=== PATIENT | female | born 1990 | race Caucasian/White ===

== ENCOUNTER → 2017-12-06 16:10 | Outpatient (CLI) | payer BC, SELFPAY ==
[2017-12-06 18:58] LABS: Chlamydia Trachomatis by PCR Negative (Negative); Neisserai gonorrhoeae by PCR Negative (Negative); Probe Check PASS; Sample Adequacy Control PASS; Specimen Processing Control PASS
[2017-12-09 08:30] LABS: HPV Reflexed? NOT INDICATED
== END ==
PROVIDERS: Family Provider Family Medicine; PCP Family Medicine; Visit Provider Obstetrics & Gynecology
DX: Z34.00 Encounter for supervision of normal first pregnancy, unspecified trimester (principal); Z12.4 Encounter for screening for malignant neoplasm of cervix
CPT/HCPCS: 87086; 87491; 87591; 88175; G0145

== ENCOUNTER → 2018-01-14 08:49 | Outpatient (CLI) | payer BC, SELFPAY ==
[2018-01-14 09:11] LABS: Absolute Lymphocyte Count 1.05 X10^3/ul (0.83-4.51); Absolute Neutrophil Count 6.4 X10^3/uL (2.0-7.7); Basophil# 0.01 X10^3/uL; Basophil% 0.1 % (0-1); Eosinophil# 0.04 X10^3/uL; Eosinophils% 0.5 % (0-5); Hemoglobin 13.1 g/dl (12.0-15.0); Lymphocyte # 1.05 X10^3/ul (4.0); Lymphocyte % 13.3 % (19-41); Mean Corp Hgb Conc 33.6 g/gl (32-36); Mean Corpuscular Hgb 29.9 pg (27.0-32.0); Mean Platelet Vol. 9.4 fl (6.2-12.0); Monocyte# 0.37 X10^3/uL; Monocyte% 4.7 % (0-10); Neutrophil # 6.39 X10^3/uL (2.7-7.7); Neutrophil % 81.1 % (47-70); Platelet Count 235 K/mm3 (150-450); RBC Distribution Width SD 42.3 fl (35.1-43.9); Red Blood Count 4.38 M/mm3 (4.2-5.4); White Blood Count 7.9 K/mm3 (4.4-11.0)
[2018-01-14 09:16] LABS: POSITIVE COUNT NO; POSITIVE DIFFERENTIAL NO; POSITIVE MORPHOLOGY NO
[2018-01-14 10:47] LABS: HIV - WCH Non-Reactive (Nonreactive); Rubella IgG 71.8 IU/mL
[2018-01-15 08:30] LABS: HEPATITIS B SURFACE AG Negative (Negative)
[2018-01-21 04:13] LABS: Rapid Plasmin Reagin (RPR) NONREACTIVE (NONREACTIVE)
== END ==
PROVIDERS: Family Provider Family Medicine; PCP Family Medicine; Referring Provider Obstetrics & Gynecology; Visit Provider Obstetrics & Gynecology
DX: Z34.90 Encounter for supervision of normal pregnancy, unspecified, unspecified trimester (principal)
CPT/HCPCS: 36415; 85025; 86592; 86703; 86762; 86850; 86900; 87086; 87340; 87491; 87591

== ENCOUNTER → 2018-04-01 15:36 | Outpatient (CLI) | payer BC, OTHER, SELFPAY ==
[2018-04-01 14:49] VITALS: BMI 22.1
[2018-04-01 16:15] LABS: Absolute Lymphocyte Count 1.53 X10^3/ul (0.83-4.51); Absolute Neutrophil Count 7.6 X10^3/uL (2.0-7.7); Basophil# 0.01 X10^3/uL; Basophil% 0.1 % (0-1); Eosinophil# 0.05 X10^3/uL; Eosinophils% 0.5 % (0-5); Hematocrit 36.9 % (37-47); Hemoglobin 12.2 g/dl (12.0-15.0); Lymphocyte # 1.53 X10^3/ul (4.0); Lymphocyte % 15.5 % (19-41); Mean Corp Hgb Conc 33.1 g/gl (32-36); Mean Corpuscular Hgb 29.8 pg (27.0-32.0); Mean Corpuscular Volume 90.2 fL (81-99); Mean Platelet Vol. 9.6 fl (6.2-12.0); Monocyte# 0.61 X10^3/uL; Monocyte% 6.2 % (0-10); Neutrophil # 7.64 X10^3/uL (2.7-7.7); Neutrophil % 77.6 % (47-70); Platelet Count 241 K/mm3 (150-450); RBC Distribution Width CV 12.8 % (11.6-14.6); RBC Distribution Width SD 41.7 fl (35.1-43.9); Red Blood Count 4.09 M/mm3 (4.2-5.4); White Blood Count 9.9 K/mm3 (4.4-11.0)
[2018-04-01 16:23] LABS: POSITIVE COUNT NO; POSITIVE DIFFERENTIAL NO; POSITIVE MORPHOLOGY NO
[2018-04-01 16:28] LABS: Glucose Challenge Gest 1H 50g 74 mg/dL (70-140)
== END ==
PROVIDERS: Family Provider Family Medicine; PCP Family Medicine; Referring Provider Obstetrics & Gynecology; Visit Provider Obstetrics & Gynecology
DX: Z34.90 Encounter for supervision of normal pregnancy, unspecified, unspecified trimester (principal)
CPT/HCPCS: 36415; 82950; 85025

== ENCOUNTER → 2018-06-02 18:53 | Outpatient (CLI) | payer OTHER, SELFPAY ==
[2018-06-02 14:41] VITALS: BMI 24.7
== END ==
PROVIDERS: Family Provider Family Medicine; PCP Family Medicine; Referring Provider Obstetrics & Gynecology; Visit Provider Obstetrics & Gynecology
DX: Z34.90 Encounter for supervision of normal pregnancy, unspecified, unspecified trimester (principal)
CPT/HCPCS: 87081

== ENCOUNTER 2018-07-02 11:53 | Inpatient (IN) | payer OTHER, SELFPAY ==
[2018-06-29 08:09] VITALS: BMI 24.7
[2018-07-02 12:25] VITALS: BMI 25.0
[2018-07-02] MEDS: Lactated Ringers 1,000 ML 50 ML IV ×2 (13:30→17:42)
[2018-07-02 13:48] LABS: Absolute Lymphocyte Count 1.14 X10^3/ul (0.83-4.51); Absolute Neutrophil Count 6.9 X10^3/uL (2.0-7.7); Basophil# 0.02 X10^3/uL; Basophil% 0.2 % (0-1); Eosinophil# 0.01 X10^3/uL; Eosinophils% 0.1 % (0-5); Hematocrit 36.7 % (37-47); Hemoglobin 12.3 g/dl (12.0-15.0); Lymphocyte # 1.14 X10^3/ul (4.0); Lymphocyte % 13.4 % (19-41); Mean Corp Hgb Conc 33.5 g/gl (32-36); Mean Corpuscular Hgb 28.7 pg (27.0-32.0); Mean Corpuscular Volume 85.7 fL (81-99); Mean Platelet Vol. 10.7 fl (6.2-12.0); Monocyte# 0.48 X10^3/uL; Monocyte% 5.6 % (0-10); Neutrophil # 6.85 X10^3/uL (2.7-7.7); Neutrophil % 80.6 % (47-70); POSITIVE COUNT NO; POSITIVE DIFFERENTIAL NO; POSITIVE MORPHOLOGY NO; Platelet Count 217 K/mm3 (150-450); RBC Distribution Width CV 13.6 % (11.6-14.6); RBC Distribution Width SD 41.8 fl (35.1-43.9); Red Blood Count 4.28 M/mm3 (4.2-5.4); White Blood Count 8.5 K/mm3 (4.4-11.0)
--- NOTE | 2018-07-02 14:03 | HP.PCM_ITS ---
- Problem List (1) Post-dates Status: Acute (2) Status: Acute Qualifiers: Comment: genetic, carrier, and NTD screening declined. Anatomy scan normal (3) Supervision of normal Status: Acute Qualifiers: Comment: PRR BEATA 06/25/18 surprise ENA Sy [facility] History and Physical Date of Admission: 07/02/18 Intake Vital Signs 06/29/18 Body Mass Index (BMI) 24.7 06/29/18 Height 5 ft 4 in 06/29/18 Weight: 146 lb 6 oz 06/29/18 Body Mass Index (BMI) 25.1 06/29/18 Blood Pressure 124/78 H 06/24/18 Body Mass Index (BMI) 24.7 Intake Visit Reasons: est ob ok per sm Winding Inspector And Tester Required: No Is patient in pain?: No Allergies latex Adverse Reaction (Severe, Verified 06/29/18 08:09) lips swell Medications vitamin,calcium,iwlchmrb-ifzq-inipd acid tablet 1 tab PO DAILY 12/06/17 [History Confirmed 06/29/18] Last Menstral Period: 12/06/17 Zika: Zika virus screening: Negative : No PFSH PFSH Medical History Scoliosis (Acute) Social History number of children: 1 current occupation: Stay at home mom Smoking Status: Never smoker alcohol intake: never substance use type: does not use caffeine: Yes (3 times a week) seatbelt use: always do you feel safe at home: Yes additional social history: [facility] [employer] Pregancy History 2 Elective abortions Hx Para 1 Spontaneous abortions Hx # Term Pregnancies 1 Ectopic pregnancies Hx # Pregnancies Multiple births # of living children 1 Past Pregnancies Del. Date Name GA/Weeks Outcome Route Bth Weight Infant Gen Labor Lgth Anesthesia Del Locatn Provider FOB 08/14/16 Sy 40 live - full term 7 lbs 15 oz. Male 13 hours epidural [facility] HPI est ob ok per sm: Details: DELMY FLORES is a 28 year old who presents for routine OB visit. OB Visit BEATA Calculator Estimated Delivery Date 06/25/18 Based on Ultrasound Date 12/06/17 Current WG 40w 4d Number 1 Expected Delivery Route/Plan Specific Issue/Plans flu vaccine: given tdap vaccine: given rhogam: [na LARC form signed: declines labor support person: Hever pain management: epidural cut cord/dad catch: maybe : yes PP control planned: possible paragard discussed possible routes of delivery and associated risks: [] special requests: [] Initial Weight: 115 lb Date EGA Weight BP Urine Prot Glucose FHR FuHt Pres Mov CTX Dilation Effaced St Visit Note 01/14/18 16w 6d 117 lb 4 oz (+2 lb 4 oz) 150 no vb cramping 01/31/18 19w 2d 118 lb 8 oz (+3 lb 8 oz) 110/62 Negative Negative 149 Active absent No VB, LOF. Doing well 02/28/18 23w 2d 129 lb (+14 lb) 110/64 Negative Negative 140 Active absent no vb lof good fm no regular ctx. has fu anatomy us 04/01/18 27w 6d 132 lb 6 oz (+17 lb 6 oz) 124/70 140 28 Active absent no vb lof good fm no regular ctx cbc gct 04/26/18 31w 3d 139 lb 4 oz (+24 lb 4 oz) 132/88 Negative Negative 151 31 Active absent Doing well. No VB, LOF 05/11/18 33w 4d 141 lb (+26 lb) 126/80 Negative Negative 140 34 Active absent no vb lof good fm no regular ctx 05/24/18 35w 3d 142 lb 4 oz (+27 lb 4 oz) 128/78 Trace 100 g/dL 151 36 Unstable Active absent No VB, LOF. Had pancakes, syrup and cookie prior to appt. 06/02/18 36w 5d 144 lb (+29 lb) 102/60 Negative Negative 145 37 Cephalic Active absent no vb lof good fm no regular ctx 06/08/18 37w 4d 145 lb 4 oz (+30 lb 4 oz) 128/86 Trace Negative 140 37 Cephalic Active absent no vb lof good fm no regular ctx 06/17/18 38w 6d 147 lb (+32 lb) 130/80 1+ A* 200 g/dL A* 145 39 Cephalic Active absent no vb lof good fm no regular ctx 06/24/18 39w 6d 146 lb (+31 lb) 132/82 Negative Negative 140 40 Cephalic Active absent no vb lof good fm no regular ctx plan IOL 41 weeks 06/29/18 40w 4d 146 lb 6 oz (+31 lb 6 oz) 124/78 Negative Negative 140 41 Cephalic Active absent 2.5 7: 0 -1 membranes swept, plan IOL wednesday. no vb lof good fm n oregular ctx Visit Notes Visit Date: 06/29/18 ??membranes swept, plan IOL wednesday. no vb lof good fm n oregular ctx ??Mendy Harris MD on 06/29/18 Visit Date: 06/24/18 ??no vb lof good fm no regular ctx plan IOL 41 weeks ??Mendy Harris MD on 06/24/18 Visit Date: 06/17/18 ??no vb lof good fm no regular ctx ??Mendy Harris MD on 06/17/18 Visit Date: 06/08/18 ??no vb lof good fm no regular ctx ??Mendy Harris MD on 06/08/18 Visit Date: 06/02/18 ??no vb lof good fm no regular ctx ??Mendy Harris MD on 06/05/18 Visit Date: 05/24/18 ??No VB, LOF. Had pancakes, syrup and cookie prior to appt. ??FRED Hu on 05/24/18 Visit Date: 05/11/18 ??no vb lof good fm no regular ctx ??Mendy Harris MD on 05/11/18 Visit Date: 04/26/18 ??Doing well. No VB, LOF ??FRED Hu on 04/26/18 Visit Date: 04/01/18 ??no vb lof good fm no regular ctx cbc gct ??Mendy Harris MD on 04/01/18 Visit Date: 02/28/18 ??no vb lof good fm no regular ctx. has fu anatomy us ??Mendy Harris MD on 02/28/18 Visit Date: 01/31/18 ??No VB, LOF. Doing well ??FRED Hu on 01/31/18 Visit Date: 01/14/18 ??no vb cramping ??Mendy Harris MD on 01/14/18 ACOG First Trimester First Trimester: Desire for , Alcohol, Tobacco Cessation, Illicit/Recreational Drug/Substance Use, Intimate Partner Violence, Barriers to care, Unstable Housing, Communication Barriers, Environmental/Work Hazards, Anticipated Course of Care, Toxoplasmosis Precations, Use of Any medications, Sexual activity, Exercise, Dental Care, Sauna/Hot tub use, Seat Belt use, Childbirth classes/Hospital facilities, , Travel, Indications for US and Screening for Aneuploidy Second Trimester Second Trimester: Signs and Symptoms of Labor, Selecting a care provider, Reproductive Life Planning, Care Planning, Tobacco Cessation, Depression/Anxiety and Intimate Partner Violence Third Trimester Third Trimester: Pain Management Plans, Labor support person(s), Immediate Larc, Movement Monitoring and Infant Feeding Yes ; discussed Trial of Labor after Counseling or discussed Circumcision preference Diagnostics Diagnostics Labs Blood Type O POSITIVE 01/14/18 Antibody Screen NEGATIVE 01/14/18 Hct 36.9 % (37-47) L 04/01/18 Hgb 12.2 g/dl (12.0-15.0) 04/01/18 Rubella IgG Antibody 71.8 IU/mL 01/14/18 RPR NONREACTIVE (NONREACTIVE) 01/14/18 Hep Bs Antigen Negative (Negative) 01/14/18 Chlam trachomat DNA PCR Cancelled 01/14/18 N.gonorrhoeae DNA (PCR) Cancelled 01/14/18 Glucose 1 Hr 50 gm 74 mg/dL (70-140) 04/01/18 Details: HIV: Urine Culture: Sequential Screen: NIPT Screen: ROS Const Reports system reviewed and no additional complaints, except as docu Card Reports system reviewed and no additional complaints, except as docu Resp Reports system reviewed and no additional complaints, except as docu GI Reports system reviewed and no additional complaints, except as docu, Reports nausea Reports system reviewed and no additional complaints, except as docu Musc Reports system reviewed and no additional complaints, except as docu Exam Const General: cooperative, healthy appearing, comfortable, anxious HENMT Head: normal to inspection Nose: external nose normal Face and sinus: normal facial exam Neck Neck: normal visual inspection, full ROM, no lymphadenopathy Thyroid: thyroid normal Chest Chest palpation & inspection: normal inspection of the chest Resp Effort & Inspection: normal respiratory effort GI Inspection: normal to inspection Palpation: soft, other (gravid uterus) Other: infant vertex and appropriate size for gestational age Other: Cervical Exam: Extrem General: pedal edema Results [id number] Office Urine Glucose Negative Last Edit by Alessandra Murcia on 06/29/18 08:07 Office Urine Protein Negative Last Edit by Alessandra Murcia on 06/29/18 08:07 Assessment & Plan Problems 1. Encounter for supervision of other normal in third trimester Z34.83 PRR BEATA 06/25/18 surprise PC Sy Hever 2. 38 weeks gestation of Z3A.38 genetic, carrier, and NTD screening declined. Anatomy scan normal 3. Post-dates O48.0 Plan plan IOL pitocin on wednesday. membranes swept. gbs neg. plan epidural prn Orders Orders: POC Urinalysis 2 Dip (Clinic) Today Coding Level of Care Code OB Routine Diagnoses Encounter for supervision of other normal in third trimester Z34.83 ??Normal : other normal ??Trimester: third trimester 38 weeks gestation of Z3A.38 ??Weeks of gestation: 38 weeks Post-dates O48.0 UPDATE- I have seen the patient and performed any clinically relevant updates to the history and physical exam. Mendy Harris MD
[2018-07-02] MEDS: Oxytocin 30 units/NS 500 ml 30 UNITS/500 ML IV.SOLN IV (14:08)
[2018-07-02] MEDS: fentaNYL-bupivacaine (epidural) 100 ML BAG EPIDURAL (15:37)
[2018-07-02] MEDS: Oxytocin 30 units/NS 500 ml 30 UNITS/500 ML IV.SOLN 334 UNITS IV (18:48)
[2018-07-02] MEDS: Oxytocin 30 units/NS 500 ml 30 UNITS/500 ML IV.SOLN 167 UNITS IV (19:19)
[2018-07-02] MEDS: 0.9% Saline Lock 10 ML Syringe IV (20:20)
[2018-07-02] MEDS: Naproxen 250 MG Tablet 500 MG PO (21:10)
--- NOTE | 2018-07-02 21:29 | PCM.OPRPT ---
Problem List (1) Post-dates Status: Acute (2) Status: Acute Qualifiers: Comment: genetic, carrier, and NTD screening declined. Anatomy scan normal (3) Supervision of normal Status: Acute Qualifiers: Comment: PRR BEATA 06/25/18 surprise PC Sy [facility] Vaginal Delivery Maternal Presentation: Medically Indicated Induction iol 41 weeks postdates Method of Induction: Pitocin Medical Reason for Induction: Post term Amniotic Membrane Rupture Type: Artificial Amniotic Fluid Description: Clear Final BEATA: 06/25/18 Gestational age: 41 Weeks and 0 Days Date of Procedure: 07/02/18 Pre-Operative Diagnosis: iol postdates Post-Operative Diagnosis: same Surgery/ Procedure Performed: Spontaneous Vaginal Delivery Type of Anesthesia: Epidural Description of Procedure: Patient began pushing and delivered the head in the DAVID presentation. The head was delivered atraumatically and a loose nuchal cord ?1 was identified and easily reduced over the infant's head. The anterior and posterior shoulders delivered without complication followed by the rest of the infant and the was placed on the maternal abdomen. Delayed cord clamping was employed for approximately 60 seconds. Cord was clamped and cut and gentle traction was applied to the cord and the placenta delivered spontaneously immediately following it was noted to be intact with three-vessel cord. The perineum and vagina were inspected and noted to have no laceration. EBL was 100 cc. Patient and tolerated delivery well. Presentation: DAVID Placental Delivery Description: Spontaneous Placenta Disposition: [facility] Cord Vessel Description: 3 Vessels Cord Entanglement: Around neck x 1, loose Estimated Blood Loss: 100 A gender: Male Episiotomy Description: None Laceration: None Medications given after delivery: IV Pitocin Complications: None
[2018-07-03 00:55] VITALS: BP 114/62; PULSE 72; RESP 16; TEMP 36.6
[2018-07-03 05:00] VITALS: BP 119/55; PULSE 80; RESP 16; TEMP 36.4
[2018-07-03 08:00] VITALS: BP 117/78; PULSE 94; RESP 18; TEMP 36.6
--- NOTE | 2018-07-03 08:05 | PCM.PN.OB ---
Subjective: doing well no complaints pain controlled no CP SOB N V ambulating well tolerating po lochia moderate, going well - Physical Exam General: Alert, Oriented x3 Vital Signs Temp Pulse Resp BP 97.6 F L 80 16 119/55 L 07/03/18 05:00 07/03/18 05:00 07/03/18 05:00 07/03/18 05:00 Oxygen Delivery Method Room Air Weight: 145 lb 15.136 oz Body Mass Index (BMI) 25.0 Intake and Output for Last 24 Hours 07/01/18 07/02/18 07/03/18 23:59 23:59 23:59 Output Total 250 / 250 500 / 500 Balance -250 / -250 -500 / -500 Laboratory Tests Past 24 Hrs 07/02/18 07/02/18 13:30 13:30 WBC 8.5 RBC 4.28 Hgb 12.3 Hct 36.7 L MCV 85.7 MCH 28.7 MCHC 33.5 RDW 13.6 RDW Differential 41.8 Plt Count 217 MPV 10.7 Immature Gran % (Auto) 0.100 Neut % (Auto) 80.6 H Lymph % (Auto) 13.4 L [place] % (Auto) 5.6 Eos % (Auto) 0.1 Baso % (Auto) 0.2 Absolute Neuts (auto) 6.9 Absolute Lymphs (auto) 1.14 Total Counted Not Reportable Blood Type O POSITIVE Antibody Screen NEGATIVE Medical Necessity - Tobacco Use Smoking Status: Never smoker Assessment/Plan All Active Problems (Last Reviewed 06/29/18 @ 08:09 by Alessandra Murcia) Post-dates (Acute) Supervision of normal (Acute) (Acute) s/p PPD # 1 1. routine post delivery care 2. breast feeding- support given 3. rh positive 4. rubella immune
--- NOTE | 2018-07-03 08:06 | DCINST_ITS ---
Discharge Diet: No Restrictions Discharge Activity: Return to Normal Activity, May not drive while taking narcotic pain medications., May Shower May resume sexual activity in: 4-6 weeks Call your doctor if your incision/area has: Continuous Slow Oozing, Sudden Increased Bleeding, Increased Pain/ Swelling, Increased Redness, Foul Smelling Discharge Additional Instructions: If you experience any of the following, contact your healthcare provider. * Bleeding that soaks a pad every hour for 2 hours * Fever 100.4 or higher * Unrelieved incision or abdominal pain * Swelling, redness, discharge or bleeding from your incision or episiotomy site * Your incision begins to separate * Problems urinating (including inability to urinate or burning while urinating). * Visual changes * Severe headache * Flu-like symptoms * Pain or redness in one of both of your breasts * Pain, warmth, tenderness or swelling in your legs, especially the calf area * Frequent nausea and vomiting * Symptoms of depression or anxiety If you experience any of the following, call 911 or go to the nearest Emergency Room. * Chest pain * Problems breathing * Seizure activity * Partial or complete paralysis of a body part, slurred speech, weakness or drooping of the face, or a sudden inability to walk or hold your balance Allergies/Adverse Reactions: Allergies latex Adverse Reaction (Severe, Verified 06/29/18 08:09) lips swell Medications to take at Discharge vitamin,calcium,mswwvlcr-fqjf-vilkk acid tablet 1 tab PO DAILY 12/06/17 Please Follow Up With: Mendy Harris MD - [phone] When: Call to make an appointment with your doctor in 6 weeks. If you had elevated Blood pressure or 4th degree laceration you will need to be seen in 2 weeks. Primary Care Physician: Care Physician,No Primary [Primary Care Provider] - Test Results: Test results from this visit will be discussed in further detail at your follow- up appointment, if applicable.
--- NOTE | 2018-07-03 08:06 | PCM.DCVAG ---
Discharge Diet: No Restrictions Discharge Activity: Return to Normal Activity, May not drive while taking narcotic pain medications., May Shower May resume sexual activity in: 4-6 weeks Call your doctor if your incision/area has: Continuous Slow Oozing, Sudden Increased Bleeding, Increased Pain/ Swelling, Increased Redness, Foul Smelling Discharge Additional Instructions: If you experience any of the following, contact your healthcare provider. Bleeding that soaks a pad every hour for 2 hours Fever 100.4 or higher Unrelieved incision or abdominal pain Swelling, redness, discharge or bleeding from your incision or episiotomy site Your incision begins to separate Problems urinating (including inability to urinate or burning while urinating). Visual changes Severe headache Flu-like symptoms Pain or redness in one of both of your breasts Pain, warmth, tenderness or swelling in your legs, especially the calf area Frequent nausea and vomiting Symptoms of depression or anxiety If you experience any of the following, call 911 or go to the nearest Emergency Room. Chest pain Problems breathing Seizure activity Partial or complete paralysis of a body part, slurred speech, weakness or drooping of the face, or a sudden inability to walk or hold your balance Allergies/Adverse Reactions: Allergies latex Adverse Reaction (Severe, Verified 06/29/18 08:09) lips swell Medications to take at Discharge vitamin,calcium,pkbzxqhy-ivyf-judso acid tablet 1 tab PO DAILY 12/06/17 Please Follow Up With: Mendy Harris MD - [phone] When: Call to make an appointment with your doctor in 6 weeks. If you had elevated Blood pressure or 4th degree laceration you will need to be seen in 2 weeks. Primary Care Physician: Care Physician,No Primary [Primary Care Provider] - Test Results: Test results from this visit will be discussed in further detail at your follow-up appointment, if applicable.
[2018-07-03 12:15] VITALS: BP 113/75; PULSE 70; RESP 18; TEMP 36.6
[2018-07-03] MEDS: Naproxen 250 MG Tablet 500 MG PO (15:28)
[2018-07-03 16:50] VITALS: BP 119/62; PULSE 67; RESP 18; TEMP 36.7
[2018-07-03 20:30] VITALS: BP 129/80; PULSE 67; RESP 16; TEMP 36.5
[2018-07-04 02:55] VITALS: BP 103/68; PULSE 64; RESP 16; TEMP 36.6
--- NOTE | 2018-07-04 07:28 | PCM.PN.OB ---
Subjective: doing well no complaints pain controlled no CP SOB N V ambulating well tolerating po lochia moderate, going well - Physical Exam General: Alert, Oriented x3 Abdomen: Soft, Non Tender, - - FF below U. Significant diastasis recti. Vital Signs Temp Pulse Resp BP 97.9 F 64 16 103/68 07/04/18 02:55 07/04/18 02:55 07/04/18 02:55 07/04/18 02:55 Oxygen Delivery Method Room Air Weight: 145 lb 15.136 oz Body Mass Index (BMI) 25.0 Intake and Output for Last 24 Hours 07/02/18 07/03/18 07/04/18 23:59 23:59 23:59 Output Total 250 / 250 900 / 900 Balance -250 / -250 -900 / -900 Medical Necessity - Tobacco Use Smoking Status: Never smoker Assessment/Plan All Active Problems (Last Reviewed 06/29/18 @ 08:09 by Alessandra Murcia) Post-dates (Acute) Supervision of normal (Acute) (Acute) s/p PPD # 2 1. routine post delivery care 2. breast feeding- support given 3. rh positive 4. rubella immune 5. abdominal binder prn 6. home today
[2018-07-04 08:00] VITALS: BP 129/81; PULSE 84; RESP 18; TEMP 36.4
== END 2018-07-04 09:20 | disposition home or self-care (01) | DRG 807 ==
PROVIDERS: Admitting Provider Obstetrics & Gynecology; Visit Provider Obstetrics & Gynecology
DX: O48.0 Post-term pregnancy (principal); Z37.0 Single live birth; O69.81X0 Labor and delivery complicated by cord around neck, without compression, not applicable or unspecified; Z3A.41 41 weeks gestation of pregnancy
CPT/HCPCS: 59025; 59050; 85025; 86850; 86900; 99218; J7120; A4216; G0378; J3490

== ENCOUNTER 2018-07-20 11:25 | Outpatient (CLI) | payer OTHER, SELFPAY | END 2018-07-20 12:25 | disposition home or self-care (01) | LOC: WPOUT 11:30 → WP 11:30 | PROVIDERS: Referring Provider Obstetrics & Gynecology; Visit Provider Obstetrics & Gynecology | DX: Z39.1 Encounter for care and examination of lactating mother (principal) | CPT/HCPCS: 96152 ==

== ENCOUNTER → 2019-10-12 10:11 | Outpatient (CLI) | payer OTHER, SELFPAY ==
[2019-10-12 10:08] VITALS: BMI 25.0
[2019-10-12 10:33] LABS: Absolute Lymphocyte Count 1.28 X10^3/uL (0.83-4.51); Absolute Neutrophil Count 6.4 X10^3/uL (2.0-7.7); Basophil# 0.05 X10^3/uL; Basophil% 0.6 % (0-1); Eosinophil# 0.05 X10^3/uL; Eosinophils% 0.6 % (0-5); Hematocrit 40.1 % (37-47); Hemoglobin 13.3 g/dL (12.0-15.0); Lymphocyte # 1.28 X10^3/ul (4.0); Lymphocyte % 15.3 % (19-41); Mean Corp Hgb Conc 33.2 g/dL (32-36); Mean Corpuscular Hgb 30.2 pg (27.0-32.0); Mean Corpuscular Volume 90.9 fL (81-99); Mean Platelet Vol. 9.8 fl (6.2-12.0); Monocyte# 0.53 X10^3/uL; Monocyte% 6.4 % (0-10); NRBC Flagged by Analyzer 0 % (0-5); Neutrophil # 6.41 X10^3/uL (2.7-7.7); Neutrophil % 76.9 % (47-70); Platelet Count 233 K/mm3 (150-450); RBC Distribution Width CV 12.4 % (11.6-14.6); Red Blood Count 4.41 M/mm3 (4.2-5.4); White Blood Count 8.3 K/mm3 (4.4-11.0)
[2019-10-12 13:39] LABS: HIV - WCH Non-Reactive (Nonreactive); Hepatitis B Surface Antigen Non-Reactive (Nonreactive); Hepatitis C Antibody Non-Reactive (Nonreactive); Rubella IgG 50.4 IU/mL
[2019-10-12 19:18] LABS: Amphetamine Urine VISTA NEGATIVE (<1000 ng/mL); Barbiturate Urine VISTA NEGATIVE (< 200 ng/mL); Benzodiazepine Urine VISTA NEGATIVE (< 200 ng/mL); Cocaine Urine VISTA NEGATIVE (< 300 ng/mL); Ecstacy Urine VISTA NEGATIVE (< 500 ng/mL); Methadone Urine VISTA NEGATIVE (< 300 ng/mL); PCP Urine VISTA NEGATIVE (< 25 ng/mL); THC Urine VISTA NEGATIVE (< 50 ng/mL); Vista UDS pH Range 6
[2019-10-12 22:24] LABS: Chlamydia Trachomatis by PCR Negative (Negative); Neisserai gonorrhoeae by PCR Negative (Negative); Probe Check PASS; Sample Adequacy Control PASS; Specimen Processing Control PASS
[2019-10-19 02:24] LABS: Rapid Plasmin Reagin (RPR) NONREACTIVE (NONREACTIVE)
== END ==
PROVIDERS: Referring Provider Obstetrics & Gynecology; Visit Provider Obstetrics & Gynecology
DX: Z34.90 Encounter for supervision of normal pregnancy, unspecified, unspecified trimester (principal)
CPT/HCPCS: 36415; 80307; 85025; 86592; 86703; 86762; 86803; 86850; 86900; 86901; 87086; 87088; 87340; 87491; 87591

== ENCOUNTER → 2019-12-25 07:53 | Outpatient (CLI) | payer OTHER, SELFPAY ==
[2019-12-07 08:44] VITALS: BMI 25.0
--- NOTE | 2019-12-25 07:56 | US_ITS ---
STUDY: SECOND AND THIRD TRIMESTER OBSTETRICAL ULTRASOUND REASON FOR EXAM: Female, 29 years old ANATOMY LMP: 08/06/2019. TECHNIQUE: Transabdominal TECHNICAL QUALITY: Adequate. PRIOR ULTRASOUND: None. FINDINGS: There is a single intrauterine fetus. The fetus is in a cephalic presentation. There is demonstrated cardiac activity with a heart rate of 148 bpm. There is a normal amniotic fluid volume. The largest amniotic fluid pocket measures 9.7 cm x 1.9 cm. The amniotic fluid index (MARY) is within normal limits. The placenta is anterior in location and is not low lying. There are Grade 0 placental changes. The cervix measures 4.2 cm in length. The adnexal regions are not visualized. BIOMETRY: BPD: 4.4 cm: 19 weeks, 1 days HC: 16.7 cm: 19 weeks, 2 days AC: 14.8 cm: 20 weeks, 0 days FL: 3.0 cm: 19 weeks, 2 days CI: 75% FL/BPD: 69% FL/HC: FL/AC: 21% HC/AC: 1.13 age by current US: 19 weeks, 1 days. BEATA by current US: 05/19/2020. Estimated weight: 370 grams, +/- 45 grams, 17 %. Age by LMP: 20 weeks, 1 days. BEATA by LMP: 05/12/2020. ANATOMY: Gender: Female Cranium: Normal lateral ventricles. Normal choroid plexus. Normal cerebellum. Normal cisterna magna. Normal face, nose and lips. Chest: Normal 4-chamber heart. Abdomen/Pelvis: Normal diaphragm. Normal stomach. Normal abdominal wall. Normal cord insertion. Normal 3 vessel cord. Normal kidneys. Normal bladder. Spine: Normal cervical spine. Normal thoracic spine. Normal lumbar spine. Normal sacrum. Extremities: Normal bilateral upper extremities. Normal bilateral lower extremities. US/OB Anatomy Scan IMPRESSION: Single live uterine gestation with a mean gestational age of 19 weeks and 1 day. Electronically Signed: Xander Burks, at 11:18 EDT , Service support ,
== END ==
PROVIDERS: Referring Provider Nurse Practitioner Women's Health; Visit Provider Nurse Practitioner Women's Health
DX: Z3A.19 19 weeks gestation of pregnancy (principal)
CPT/HCPCS: 76805

== ENCOUNTER → 2020-02-19 09:57 | Outpatient (CLI) | payer OTHER, SELFPAY ==
[2020-01-29 10:11] VITALS: BMI 22.4
[2020-02-19 10:13] LABS: Absolute Lymphocyte Count 1.29 X10^3/uL (0.83-4.51); Basophil# 0.04 X10^3/uL; Basophil% 0.4 % (0-1); Eosinophil# 0.07 X10^3/uL; Eosinophils% 0.7 % (0-5); Hematocrit 39.4 % (37-47); Hemoglobin 12.6 g/dL (12.0-15.0); Lymphocyte # 1.29 X10^3/ul (4.0); Mean Corpuscular Hgb 30.3 pg (27.0-32.0); Mean Corpuscular Volume 94.7 fL (81-99); Mean Platelet Vol. 9.3 fl (6.2-12.0); Monocyte# 0.43 X10^3/uL; Monocyte% 4.3 % (0-10); NRBC Flagged by Analyzer 0 % (0-5); Neutrophil # 8.02 X10^3/uL (2.7-7.7); Neutrophil % 81.1 % (47-70); Platelet Count 223 K/mm3 (150-450); RBC Distribution Width CV 12.9 % (11.6-14.6); RBC Distribution Width SD 44.3 fl (35.1-43.9); Red Blood Count 4.16 M/mm3 (4.2-5.4); White Blood Count 9.9 K/mm3 (4.4-11.0)
[2020-02-19 10:20] LABS: Glucose Challenge Gest 1H 50g 88 mg/dL (70-140)
== END ==
PROVIDERS: Referring Provider Obstetrics & Gynecology; Visit Provider Obstetrics & Gynecology
DX: Z34.90 Encounter for supervision of normal pregnancy, unspecified, unspecified trimester (principal)
CPT/HCPCS: 36415; 82950; 85025

== ENCOUNTER → 2020-04-19 12:39 | Outpatient (CLI) | payer OTHER, SELFPAY ==
[2020-04-19 09:50] VITALS: BMI 24.9
== END ==
PROVIDERS: Referring Provider Obstetrics & Gynecology; Visit Provider Obstetrics & Gynecology
DX: Z34.90 Encounter for supervision of normal pregnancy, unspecified, unspecified trimester (principal)
CPT/HCPCS: 87081

== ENCOUNTER → 2020-05-10 10:19 | Outpatient (CLI) | payer OTHER, SELFPAY ==
[2020-04-03 09:10] VITALS: BMI 24.4
[2020-05-10 09:00] VITALS: BMI 25.6
== END ==
PROVIDERS: Visit Provider Nurse Practitioner Women's Health
DX: Z11.59 Encounter for screening for other viral diseases (principal)
CPT/HCPCS: 87635; C9803; U0005; U0003

== ENCOUNTER 2020-05-18 18:10 | Inpatient (IN) | payer OTHER, SELFPAY ==
[2020-05-17 09:37] VITALS: BMI 25.7
[2020-05-18] VITALS (36 sets, daily range): BP systolic 110–155; BP diastolic 54–80; PULSE 59–196; RESP 16; TEMP 36.7–37.4; O2SAT 84–99; BMI 24.9
[2020-05-18] MEDS: Lactated Ringers 1,000 ML 50 ML IV (18:20)
[2020-05-18] MEDS: Lactated Ringers 500 ML 999 ML IV (18:30)
[2020-05-18 18:43] LABS: Absolute Lymphocyte Count 1.29 X10^3/uL (0.83-4.51); Absolute Neutrophil Count 10.3 X10^3/uL (2.0-7.7); Basophil# 0.03 X10^3/uL; Basophil% 0.2 % (0-1); Eosinophil# 0.03 X10^3/uL; Eosinophils% 0.2 % (0-5); Hematocrit 39.8 % (37-47); Hemoglobin 13.6 g/dL (12.0-15.0); Lymphocyte # 1.29 X10^3/ul (4.0); Lymphocyte % 10.4 % (19-41); Mean Corp Hgb Conc 34.2 g/dL (32-36); Mean Corpuscular Hgb 30.6 pg (27.0-32.0); Mean Corpuscular Volume 89.6 fL (81-99); Mean Platelet Vol. 10.4 fl (6.2-12.0); Monocyte# 0.65 X10^3/uL; Monocyte% 5.2 % (0-10); NRBC Flagged by Analyzer 0 % (0-5); Neutrophil # 10.34 X10^3/uL (2.7-7.7); Neutrophil % 83.6 % (47-70); Platelet Count 200 K/mm3 (150-450); RBC Distribution Width CV 12.9 % (11.6-14.6); RBC Distribution Width SD 42.4 fl (35.1-43.9); Red Blood Count 4.44 M/mm3 (4.2-5.4); White Blood Count 12.4 K/mm3 (4.4-11.0)
--- NOTE | 2020-05-18 18:51 | HP.PCM_ITS ---
- Problem List (1) Active labor Status: Acute (2) 35 weeks gestation of Status: Acute Comment: NEGATIVE COVID TEST (3) History of tetanus, diphtheria, and acellular pertussis booster vaccination (Tdap) Status: Acute Comment: 02/19/20 (4) Status: Acute Qualifiers: Comment: genetic, carrier, and NTD screening declined. Flu 12/07/19, normal anatomy (5) Supervision of normal Status: Acute Qualifiers: Comment: PRR BEATA 05/12/20 surprise PC Nithin Dan Hever (6) Unspecified contraceptive management Status: Acute Qualifiers: Comment: considering IUD History and Physical Date of Admission: 05/18/20 Intake Vital Signs 05/17/20 Height 5 ft 4 in 05/17/20 Weight: 150 lb 05/17/20 BMI 25.7 05/17/20 BP 124/82 H Intake Visit Reasons: 41WK OB [employer] Worker Required: No Is patient in pain?: No Allergies latex Adverse Reaction (Severe, Verified 05/17/20 09:37) lips swell Medications vitamin#30 30 mg iron-10 mg iron-folic acid 1 mg-omg3 capsule cap PO 10/12/19 history Confirmed 05/17/20 Last Menstral Period: 12/06/17 Zika: Zika virus screening: Negative : No PFSH PFSH Medical History Scoliosis (Acute) Family History Other Asthma Hypertension Social History (Updated 05/17/20 @ 10:[address] Rachana Brito MD) number of children: 1 current occupation: Stay at home mom Smoking Status: Never smoker alcohol intake: never substance use type: does not use caffeine: Yes (3 times a week) what type of physical activity do you participate in: walking seatbelt use: always do you feel safe at home: Yes additional social history: [employer] Pre[employer] History 2 Elective abortions Hx Para 2 Spontaneous abortions Hx # Term Pregnancies 2 Ectopic pregnancies Hx # Pregnancies Multiple births # of living children 2 Past Pregnancies Del. Date Name GA/Weeks Outcome Route Bth Weight Infant Gen Labor Lgth Anesthesia Del Locatn Provider FOB 08/14/16 Sy 40 live - full term 7 lbs 15 oz. Male 13 hours epidural [facility] 07/02/18 Nithin 41 live - full term 7lbs 15oz Male 4 hours epidural [facility] [place] Delivery Date: 08/14/16 No notes to display Delivery Date: 07/02/18 Post dates Renetta Connolly HPI 41WK OB : Details: DELMY FLORES is a 30 year old who presents for routine OB visit. OB Visit BEATA Calculator Estimated Delivery Date Method Current WG Current Estimate 05/12/20 LMP (Certain) 40w 5d Expected Delivery Route/Plan Labor Preferences- CB/BF classes: no labor support person: Hever labor intervention preferences: no pref pain management options preferred: epidural cut cord/dad catch: yes : yes PP control planned: condoms discussed possible routes of delivery and associated risks: discussed possible delivery modalities and possible indications for each including R/B/A of , VAVD, FAVD, and CS. questions answered. special requests: Specific Issue/Plans flu vaccine: given tdap vaccine: given rhogam: NA LARC form signed: yes Problem list reviewed and updated with the most current plan of care details and appropriate orders placed. Relevant counseling for the gestational age provided. Continue routine care and follow up unless otherwise noted in visit notes/problem list details Initial Weight: 110 lb Date EGA Weight BP Urine Prot Glucose FHR FuHt Pres Dilation Effaced St Visit Note 10/12/19 9w 4d 110 lb (+0 oz) 116/58 195 SM- CRL- 2.5 cm 11/09/19 13w 4d 113 lb (+3 lb) 106/60 Negative Negative 155 Sm- no vb crmaping ordered anatomy scan 12/07/19 17w 4d 117 lb 6 oz (+7 lb 6 oz) 102/70 Negative Negative 157 MH-No VB, LOF. Needs MFM anatomy scan scheduled. Flu vaccine 01/05/20 21w 5d 127 lb (+17 lb) 104/60 Negative Negative 150 21 SM- no vb lof good fm no regualr ctx 01/29/20 25w 1d 131 lb (+21 lb) 102/78 Negative Negative 150 25 SM- no vb lof good fm no regular ctx 02/19/20 28w 1d 138 lb 6 oz (+28 lb 6 oz) 122/70 Negative Negative 148 28 MH-No Vb, LOF. Good FM. Normal 28 wk labs today. Larc, tdap 03/06/20 30w 3d 139 lb 8 oz (+29 lb 8 oz) 130/82 130 30 GP - no LOF, VB, DFM, ctx. Denies complaints. 03/20/20 32w 3d 140 lb (+30 lb) 122/80 Negative Negative 155 32 GP - no LOF, VB, DFM, ctx. Discussed pepcid for heartburn. Having more hip and back pain this . 04/03/20 34w 3d 142 lb 8 oz (+32 lb 8 oz) 138/72 Negative Negative 155 34 Cephalic GP - no LOF, VB, DFM, ctx. Denies complaints. 04/19/20 36w 5d 145 lb (+35 lb) 125/75 Negative Negative 160 36 Cephalic 1 SM- no vb lof good fm no regular ctx 04/26/20 37w 5d 145 lb 4 oz (+35 lb 4 oz) 122/76 Negative Negative 155 37 Cephalic GP - no LOF, VB, DFM, ctx. Discussed routes of delivery. 05/03/20 38w 5d 144 lb (+34 lb) 104/62 Negative Negative 145 37 Cephalic SM- no vb lof good fm no regular ctx 05/10/20 39w 5d 149 lb 6 oz (+39 lb 6 oz) 120/82 Negative Negative 140 39 Cephalic 1 50 -2 GP - no LOF, VB, DFM. Irr egular ctx. 05/17/20 40w 5d 150 lb (+40 lb) 124/82 Negative Negative 140 40 Cephalic 2 70 -2 GP - no LOF, VB, DFM, ctx . Membranes swept. IOL scheduled for 05/20 if does not go into labor before then. ACOG First Trimester First Trimester: Desire for , Alcohol, Tobacco Cessation, Illicit/Recreational Drug/Substance Use, Intimate Partner Violence, Barriers to care, Unstable Housing, Communication Barriers, Environmental/Work Hazards, Anticipated Course of Care, Toxoplasmosis Precations, Use of Any medications, Sexual activity, Exercise, Dental Care, Sauna/Hot tub use, Seat Belt use, Childbirth classes/Hospital facilities, Travel, Indications for US and Screening for Aneuploidy; discussed Second Trimester Second Trimester: Signs and Symptoms of Labor, Selecting a care provider, Reproductive Life Planning, Care Planning, Tobacco Cessation, Depression/Anxiety and Intimate Partner Violence Third Trimester Third Trimester: Pain Management Plans, Labor support person(s), Immediate Larc and Movement Monitoring; discussed Trial of Labor after Counseling or discussed Circumcision preference Diagnostics Diagnostics Diagnostics Glucose 1 Hr 50 gm 88 mg/dL (70-140) 02/19/20 Hgb 12.6 g/dL (12.0-15.0) 02/19/20 Hct 39.4 % (37-47) 02/19/20 Details: HIV: Urine Culture: Sequential Screen: NIPT Screen: ROS Const Reports system reviewed and no additional complaints, except as docu Eyes Reports system reviewed and no additional complaints, except as docu ENT Reports system reviewed and no additional complaints, except as docu Card Reports system reviewed and no additional complaints, except as docu Resp Reports system reviewed and no additional complaints, except as docu GI Reports system reviewed and no additional complaints, except as docu Reports system reviewed and no additional complaints, except as docu, Denies abnormal vaginal bleeding, Denies painful urination, Denies pelvic pain, Denies vaginal discharge, Denies vaginal odor, Denies vaginal itching Musc Reports system reviewed and no additional complaints, except as docu Skin/Breast Reports system reviewed and no additional complaints, except as docu Neuro Yes system reviewed and no additional complaints, except as docu Psych Reports system reviewed and no additional complaints, except as docu Endo Reports system reviewed and no additional complaints, except as docu Exam Const General: cooperative, healthy appearing, comfortable, no acute distress, well developed, well groomed Nutritional Appearance: average body habitus, well nourished Orientation: alert, awake, oriented x3 [facility] Head: normal to inspection, normocephalic, atraumatic Eyes Pupils: PERRL, accommodation normal Resp Effort & Inspection: normal respiratory effort, able to speak in complete sentences, symmetric chest movement Cardio Rate: regular rate GI Palpation: soft, no guarding, no masses, nontender Skin General: no rashes or lesions noted, elasticity normal, turgor normal Neuro General: alert, awake, oriented x3 Cranial Nerves: CN's II-XI intact bilaterally, sense of smell intact, PERRL, accommodation normal, EOM intact bilaterally Speech: speech normal Gait: normal gait Psych Appearance: grossly normal, well kempt Mental Status: mental status grossly normal Mood: congruent mood Affect: normal affect Speech and Movement: speech and movement normal Attitude: cooperative Thought Process: normal Thought Content: normal Judgment: judgment good Results POC Urinalysis 2 Dip (Clinic) Office Urine Glucose Negative Last Edit by Renetta Connolly on 05/17/20 09:52 Office Urine Protein Negative Last Edit by Renetta Connolly on 05/17/20 09:52 Assessment & Plan Problems 1. 35 weeks gestation of Z3A.35 NEGATIVE COVID TEST 2. Encounter for initial prescription of contraceptives, unspecified contraceptive Z30.019 considering IUD 3. History of tetanus, diphtheria, and acellular pertussis booster vaccination (Tdap) Z92.29 02/19/20 4. Encounter for supervision of other normal in third trimester Z34.83 PRR BEATA 05/12/20 surprise PC Nithin Dan Hever 5. 40 weeks gestation of Z3A.40 genetic, carrier, and NTD screening declined. Flu 12/07/19, normal anatomy at 40 weeks who presents in active labor Patient presents IAL, plan expectant management for , pitocin/AROM PRN if needed. Pain management: Plans epidural. GBS negative. Management of any complications: None I have reviewed the [facility] and made any clinically relevant updates. UPDATE- I have seen the patient and performed any clinically relevant updates to the history and physical exam. Rachana Brito MD
[2020-05-18] MEDS: Oxytocin 30 units/NS 500 ml 30 UNITS/500 ML IV.SOLN 334 UNITS IV (20:03)
--- NOTE | 2020-05-18 20:10 | PCM.OPRPT ---
Problem List (1) Active labor Status: Acute (2) 35 weeks gestation of Status: Acute Comment: NEGATIVE COVID TEST (3) History of tetanus, diphtheria, and acellular pertussis booster vaccination (Tdap) Status: Acute Comment: 02/19/20 (4) Status: Acute Qualifiers: Comment: genetic, carrier, and NTD screening declined. Flu 12/07/19, normal anatomy (5) Supervision of normal Status: Acute Qualifiers: Comment: PRR BEATA 05/12/20 surprise PC SyKisha adamslan Hever (6) Unspecified contraceptive management Status: Acute Qualifiers: Comment: considering IUD Vaginal Delivery Maternal Presentation: Active Labor 30-year-old G3, P2 at 40 weeks gestation admitted out of triage in active labor. Patient made rapid cervical change to complete dilation. Amniotic Membrane Rupture Type: Spontaneous Amniotic Fluid Description: Clear Final BEATA: 05/12/20 Gestational age: 40 Weeks and 6 Days Date of Procedure: 05/18/20 Pre-Operative Diagnosis: Term , active labor Post-Operative Diagnosis: Same Surgery/ Procedure Performed: Spontaneous Vaginal Delivery Type of Anesthesia: Epidural Description of Procedure: Patient began pushing and delivered the head in the DAVID presentation. The head was delivered atraumatically and no nuchal cord was noted. The anterior and posterior shoulders delivered without complication followed by the rest of the infant and the was placed on the maternal abdomen. Delayed cord clamping was employed for approximately 60 seconds. Cord was clamped and cut and gentle traction was applied to the cord and the placenta delivered spontaneously immediately following it was noted to be intact with three-vessel cord. The perineum and vagina were inspected and noted to have no laceration. EBL was 150 cc. Patient and tolerated delivery well. Presentation: Vertex Placental Delivery Description: Spontaneous Placenta Disposition: [facility] Cord Vessel Description: 3 Vessels Nuchal Cord Compression: Without compression Cord Entanglement: None Estimated Blood Loss: 150 A gender: Female (1 minute): 9 (5 minute): 10 Episiotomy Description: None Laceration: None Medications given after delivery: IV Pitocin Complications: None Multi Select Codes - Urinary/Genital Urinary/Genital CPT Codes: 67188 Vaginal Delivery [facility]
--- NOTE | 2020-05-18 20:12 | DCINST_ITS ---
Discharge Diet: No Restrictions Discharge Activity: Return to Normal Activity, May not drive while taking narcotic pain medications., May Shower May resume sexual activity in: 4-6 weeks Additional Activity Instructions:: Nothing in the vagina for 4-6 weeks. You may return to work/school in 6 weeks. Call your doctor if your incision/area has: Continuous Slow Oozing, Sudden Increased Bleeding, Increased Pain/ Swelling, Increased Redness, Foul Smelling Discharge Additional Instructions: If you experience any of the following, contact your healthcare provider. * Bleeding that soaks a pad every hour for 2 hours * Fever 100.4 or higher * Unrelieved incision or abdominal pain * Swelling, redness, discharge or bleeding from your incision or episiotomy site * Your incision begins to separate * Problems urinating (including inability to urinate or burning while urinating). * Visual changes * Severe headache * Flu-like symptoms * Pain or redness in one of both of your breasts * Pain, warmth, tenderness or swelling in your legs, especially the calf area * Frequent nausea and vomiting * Symptoms of depression or anxiety If you experience any of the following, call 911 or go to the nearest Emergency Room. * Chest pain * Problems breathing * Seizure activity * Partial or complete paralysis of a body part, slurred speech, weakness or drooping of the face, or a sudden inability to walk or hold your balance Allergies/Adverse Reactions: Allergies latex Adverse Reaction (Severe, Verified 05/17/20 09:37) lips swell Medications to take at Discharge vitamin#30 30 mg iron-10 mg iron-folic acid 1 mg-omg3 capsule 1 cap PO DAILY 10/12/19 When: Call to make an appointment with your doctor in 6 weeks. If you had elevated Blood Pressure or 4th degree laceration you will need to be seen in 2 weeks. Primary Care Physician: Care Physician,No Primary [Primary Care Provider] - Test Results: Test results from this visit will be discussed in further detail at your follow- up appointment, if applicable.
[2020-05-18] MEDS: Acetaminophen 500 MG Tablet 1000 MG PO (21:28)
[2020-05-18] MEDS: 0.9% Saline Lock 10 ML Syringe IV (22:31)
[2020-05-18] MEDS: Naproxen 250 MG Tablet 500 MG PO (23:48)
[2020-05-19 04:38] VITALS: BP 104/58; PULSE 63; RESP 16; TEMP 36.6; O2SAT 96
[2020-05-19 08:03] VITALS: BP 114/69; PULSE 98; RESP 16; TEMP 36.8; O2SAT 96
--- NOTE | 2020-05-19 10:00 | PN.OBGYN_ITS ---
Patient Problems: Active and Suspected Problems (Last Reviewed 05/17/20 @ 09:37 by Renetta Connolly) Active labor (Acute) 35 weeks gestation of (Acute) NEGATIVE COVID TEST Unspecified contraceptive management (Acute) considering IUD History of tetanus, diphtheria, and acellular pertussis booster vaccination (Tdap) (Acute) 02/19/20 Supervision of normal (Acute) PRR BEATA 05/12/20 surprise PC Nithin Dan Hever (Acute) genetic, carrier, and NTD screening declined. Flu 12/07/19, normal anatomy Subjective: Patient doing well without complaints. Tolerating PO. Ambulating and voiding without difficulty. Breast feeding well. Denies chest pain, shortness of breath, calf pain/swelling, fevers, chills, lightheadedness. - Physical Exam Vitals/I&O's: Vital Signs Temp Pulse Resp BP Pulse Ox 98.3 F 98 16 114/69 96 05/19/20 08:03 05/19/20 08:03 05/19/20 08:03 05/19/20 08:03 05/19/20 08:03 Oxygen Delivery Method Room Air Weight: 145 lb 4 oz Body Mass Index (BMI) 24.9 Intake and Output for Last 24 Hours 05/17/20 05/18/20 05/19/20 23:59 23:59 23:59 Intake Total 1079.05 / 1079.05 Output Total 400 / 400 Balance 1079.05 / 1079.05 -400 / -400 General: Alert, Oriented x3, Cooperative, No apparent distress, Well developed HEENT: Atraumatic, PERRLA, EOMI, Normocephalic Neck: Supple, No JVD Lungs: Normal air movement Cardiovascular: Regular rate Abdomen: Soft, Non Tender, Non-Distended, - - fundus firm Extremities: No edema, No Calf Tenderness Neurological: Cranial nerves II-XII grossly intact, Neuro grossly intact Psych/Mental Status: Normal Affect, Appropriate Laboratory Results 05/18/20 18:20: WBC 12.4 H, RBC 4.44, Hgb 13.6, Hct 39.8, MCV 89.6, MCH 30.6, MCHC 34.2, RDW Std Deviation 42.4, RDW Coeff of Dung 12.9, Plt Count 200, MPV 10.4, Immature Gran % (Auto) 0.400, Neut % (Auto) 83.6 H, Lymph % (Auto) 10.4 L, [place] % (Auto) 5.2, Eos % (Auto) 0.2, Baso % (Auto) 0.2, Absolute Neuts (auto) 10.3 H, Absolute Lymphs (auto) 1.29, Nucleated RBC % 0 05/18/20 18:20: Blood Type O POSITIVE, Antibody Screen NEGATIVE Current Medications Acetaminophen (Acetaminophen 500 Mg Tablet) 1,000 mg PO Q8H PRN PRN PRN Reason: Pain Score 1-3 Last Admin: 05/18/20 21:28 Dose: 1,000 mg Documented by: Bisacodyl (Bisacodyl 10 Mg Suppository) 10 mg RC UD PRN PRN Reason: If no BM Dibucaine (Dibucaine 30 Gm Tube) 1 applic TOPICAL TID PRN PRN; Protocol PRN Reason: Discomfort Hydrocortisone (Hydrocortisone 2.5% Crm) 1 applic TOPICAL TID PRN PRN; Protocol PRN Reason: Discomfort Methylergonovine Maleate (Methylergonovine 0.2 Mg/Ml Ampul) 0.2 mg IM X1 PRN PRN Reason: Excess bleeding/uterine atony Naproxen (Naproxen 250 Mg Tablet) 500 mg PO Q8H PRN PRN PRN Reason: Pain Score 1-3 Last Admin: 05/18/20 23:48 Dose: 500 mg Documented by: Ondansetron HCl (Ondansetron 4 Mg/2 Ml Vial) 4 mg IV Q4H PRN PRN PRN Reason: Nausea Oxycodone HCl (Oxycodone 5 Mg Tablet) 5 - 10 mg PO Q4H PRN PRN PRN Reason: Pain Score 4-10 Senna/Docusate Sodium (Senna/Docusate Sodium 1 Tablet) 1 - 2 tablet PO DAILY PRN PRN PRN Reason: Constipation Simethicone (Simethicone 80 Mg Tablet) 80 mg PO PCHS PRN PRN Reason: Indigestion/Stomach pain Sodium Chloride (0.9% Saline Lock 10 Ml Syringe) 5 - 15 ml IV UD PRN PRN Reason: SALINE FLUSH Last Admin: 05/18/20 22:31 Dose: 10 ml Documented by: Medical Necessity - Tobacco Use Smoking Status: Never smoker Assessment/Plan All Active Problems (Last Reviewed 05/17/20 @ 09:37 by Renetta Connolly) Active labor (Acute) 35 weeks gestation of (Acute) Unspecified contraceptive management (Acute) History of tetanus, diphtheria, and acellular pertussis booster vaccination (Tdap) (Acute) Supervision of normal (Acute) (Acute) Conjunctivitis, right eye (Resolved) Post-dates (Resolved) Supervision of normal (Resolved)
[2020-05-19 12:45] VITALS: BP 128/80; PULSE 80; RESP 16; TEMP 36.8; O2SAT 97
[2020-05-19 16:24] VITALS: BP 115/74; PULSE 76; RESP 16; TEMP 36.8; O2SAT 98
[2020-05-19 20:25] VITALS: BP 120/69; PULSE 72; RESP 16; TEMP 36.7
== END 2020-05-19 20:30 | disposition home or self-care (01) | DRG 807 ==
LOC: WPOUT 18:14 → WP 18:14
PROVIDERS: Obstetrics & Gynecology; Admitting Provider Obstetrics & Gynecology; Visit Provider Obstetrics & Gynecology
DX: O80 Encounter for full-term uncomplicated delivery (principal); Z37.0 Single live birth; Z3A.40 40 weeks gestation of pregnancy
CPT/HCPCS: 59050; 85025; 86850; 86900; 86901; 99218; J7120; A4216; G0378; J3490

== ENCOUNTER → 2020-07-08 12:39 | Outpatient (CLI) | payer OTHER, SELFPAY ==
[2020-07-08 10:10] VITALS: BMI 21.1
[2020-07-11 16:41] LABS: HPV APTIMA, High Risk Negative (Negative)
== END ==
PROVIDERS: Referring Provider Obstetrics & Gynecology; Visit Provider Obstetrics & Gynecology
DX: Z12.4 Encounter for screening for malignant neoplasm of cervix (principal)
CPT/HCPCS: 87624; 88175; G0145

== ENCOUNTER 2021-06-02 09:42 | Outpatient (CLI) | payer OTHER, SELFPAY ==
[2021-06-02 10:17] LABS: Absolute Lymphocyte Count 1.41 X10^3/uL (0.83-4.51); Absolute Neutrophil Count 5.7 X10^3/uL (2.0-7.7); Basophil# 0.03 X10^3/uL; Basophil% 0.4 % (0-1); Eosinophil# 0.04 X10^3/uL; Eosinophils% 0.5 % (0-5); Hematocrit 38.2 % (37-47); Hemoglobin 13.3 g/dL (12.0-15.0); Lymphocyte # 1.41 X10^3/ul (0.83-4.51); Lymphocyte % 18.2 % (19-41); Mean Corp Hgb Conc 34.8 g/dL (32-36); Mean Corpuscular Hgb 30.2 pg (27.0-32.0); Mean Corpuscular Volume 86.6 fL (81-99); Mean Platelet Vol. 9.5 fl (6.2-12.0); Monocyte# 0.54 X10^3/uL; NRBC Flagged by Analyzer 0 % (0-5); Neutrophil # 5.71 X10^3/uL (2.7-7.7); Neutrophil % 73.5 % (47-70); Platelet Count 226 K/mm3 (150-450); RBC Distribution Width CV 12.7 % (11.6-14.6); RBC Distribution Width SD 40.1 fl (35.1-43.9); Red Blood Count 4.41 M/mm3 (4.2-5.4); White Blood Count 7.8 K/mm3 (4.4-11.0)
[2021-06-02 11:22] LABS: HIV - WCH Non-Reactive (Nonreactive); Hepatitis B Surface Antigen Non-Reactive (Nonreactive); Hepatitis C Antibody Non-Reactive (Nonreactive); Rubella IgG Reactive (Nonreactive); Syphilis Antibodies Non-reactive
[2021-06-02 12:03] LABS: Amphetamine Urine VISTA NEGATIVE (<1000 ng/mL); Barbiturate Urine VISTA NEGATIVE (< 200 ng/mL); Benzodiazepine Urine VISTA NEGATIVE (< 200 ng/mL); Cocaine Urine VISTA NEGATIVE (< 300 ng/mL); Ecstacy Urine VISTA NEGATIVE (< 500 ng/mL); Methadone Urine VISTA NEGATIVE (< 300 ng/mL); PCP Urine VISTA NEGATIVE (< 25 ng/mL); THC Urine VISTA NEGATIVE (< 50 ng/mL); Vista UDS pH Range 7
[2021-06-03 22:06] LABS: Chlamydia By Nucleic Acid AMP Negative (Negative)
[2021-06-04 13:26] LABS: Gonococcus By Nucleic Acid AMP Negative (Negative)
== END 2021-06-02 23:59 | disposition home or self-care (01) ==
LOC: PAVLAB 09:42
PROVIDERS: Referring Provider Obstetrics & Gynecology; Visit Provider Obstetrics & Gynecology
DX: Z34.90 Encounter for supervision of normal pregnancy, unspecified, unspecified trimester (principal)
CPT/HCPCS: 36415; 80307; 85025; 86703; 86762; 86780; 86803; 86850; 86900; 86901; 87086; 87088; 87340; 87491; 87591

== ENCOUNTER 2021-07-03 11:29 | Outpatient (CLI) | payer OTHER, SELFPAY | END 2021-07-03 23:59 | disposition home or self-care (01) | LOC: LABSPEC 11:31 | PROVIDERS: Referring Provider Obstetrics & Gynecology; Visit Provider Obstetrics & Gynecology | DX: O99.891 Other specified diseases and conditions complicating pregnancy (principal); R82.71 Bacteriuria; Z3A.00 Weeks of gestation of pregnancy not specified | CPT/HCPCS: 87086; 87088 ==

== ENCOUNTER → 2021-08-14 | Outpatient (CLI) | payer OTHER, SELFPAY ==
--- NOTE | 2021-08-14 12:32 | US_ITS ---
STUDY: SECOND AND THIRD TRIMESTER OBSTETRICAL ULTRASOUND REASON FOR EXAM: Female, 31 years old . anatomy. LMP: 03/31/2021. TECHNIQUE: Transabdominal and Transvaginal TECHNICAL QUALITY: Adequate. PRIOR ULTRASOUND: None. FINDINGS: There is a single intrauterine fetus. The fetus is in a cephalic presentation. There is demonstrated cardiac activity with a heart rate of 141 bpm. There is a normal amniotic fluid volume. The largest amniotic fluid pocket measures 4.4 cm x 3.7 cm. The amniotic fluid index (MARY) is within normal limits. The placenta is posterior in location and is not low lying. There are Grade 0 placental changes. The cervix measures 3.6 cm in length. The bilateral adnexal regions are normal. BIOMETRY: BPD: 4.5 cm: 19 weeks, 3 days HC: 16.6 cm: 19 weeks, 2 days AC: 14.9 cm: 20 weeks, 1 days FL: 2.9 cm: 18 weeks, 5 days CI: 79% FL/BPD: 64% FL/HC: FL/AC: 19% HC/AC: 1.12 age by current US: 19 weeks, 2 days. BEATA by current US: 01/06/2022. Estimated weight: 299 grams, +/- 44 grams, 51 %. Age by LMP: 19 weeks, 3 days. BEATA by LMP: 01/05/2022. ANATOMY: Gender: Indeterminant Cranium: Normal lateral ventricles. Normal choroid plexus. Normal cerebellum. Normal cisterna magna. Normal face, nose and lips. Chest: Normal 4-chamber heart. Abdomen/Pelvis: Normal diaphragm. Normal stomach. Normal abdominal wall. Normal cord insertion. Normal 3 vessel cord. Normal kidneys. Normal bladder. Spine: Normal cervical spine. Normal thoracic spine. Normal lumbar spine. Normal sacrum. Extremities: Normal bilateral upper extremities. Normal bilateral lower extremities. IMPRESSION: Single live intrauterine gestation with a mean gestational age of 19 weeks and 2 days. Electronically Signed: Xander Burks MD at 15:04 EDT , STUDY: FIRST TRIMESTER OBSTETRICAL ULTRASOUND REASON FOR EXAM: Female, 31 years old . Cervical measurement. LMP: 03/31/2021. TECHNIQUE: Transvaginal TECHNICAL QUALITY: Adequate. PRIOR ULTRASOUND: None. FINDINGS: The cervical length measures 3.6 cm. US/OB Anatomy Scan IMPRESSION: Cervical length measures 3.6 cm. Electronically Signed: Xander Burks MD at 15:05 EDT ,
== END | disposition home or self-care (01) ==
PROVIDERS: Visit Provider Obstetrics & Gynecology
DX: Z34.90 Encounter for supervision of normal pregnancy, unspecified, unspecified trimester (principal)
CPT/HCPCS: 76805; 76817

== ENCOUNTER → 2021-09-22 | Outpatient (CLI) | payer OTHER, SELFPAY ==
[2021-09-22 08:56] LABS: Absolute Lymphocyte Count 1.35 X10^3/uL (0.83-4.51); Absolute Neutrophil Count 7.2 X10^3/uL (2.0-7.7); Basophil# 0.04 X10^3/uL; Basophil% 0.4 % (0-1); Eosinophil# 0.08 X10^3/uL; Eosinophils% 0.9 % (0-5); Hematocrit 38.2 % (37-47); Hemoglobin 12.4 g/dL (12.0-15.0); Lymphocyte # 1.35 X10^3/ul (0.83-4.51); Lymphocyte % 14.8 % (19-41); Mean Corp Hgb Conc 32.5 g/dL (32-36); Mean Corpuscular Hgb 30.2 pg (27.0-32.0); Mean Corpuscular Volume 93.2 fL (81-99); Mean Platelet Vol. 9.8 fl (6.2-12.0); Monocyte# 0.41 X10^3/uL; Monocyte% 4.5 % (0-10); NRBC Flagged by Analyzer 0 % (0-5); Neutrophil # 7.17 X10^3/uL (2.7-7.7); Neutrophil % 78.9 % (47-70); Platelet Count 212 K/mm3 (150-450); RBC Distribution Width CV 12.8 % (11.6-14.6); RBC Distribution Width SD 43.9 fl (35.1-43.9); White Blood Count 9.1 K/mm3 (4.4-11.0)
[2021-09-22 09:17] LABS: Glucose Challenge Gest 1H 50g 82 mg/dL (70-140)
== END | disposition home or self-care (01) ==
LOC: PAVLAB 08:33
PROVIDERS: Referring Provider Obstetrics & Gynecology; Visit Provider Obstetrics & Gynecology
DX: Z34.82 Encounter for supervision of other normal pregnancy, second trimester (principal)
CPT/HCPCS: 36415; 82950; 85025

== ENCOUNTER → 2021-12-08 | Outpatient (CLI) | payer OTHER, SELFPAY | END | disposition home or self-care (01) | PROVIDERS: Visit Provider Obstetrics & Gynecology | DX: Z34.82 Encounter for supervision of other normal pregnancy, second trimester (principal) | CPT/HCPCS: 87077; 87081; 87186 ==

== ENCOUNTER 2022-01-10 05:05 | Inpatient (IN) | payer OTHER, SELFPAY ==
[2022-01-10] VITALS (32 sets, daily range): BP systolic 99–135; BP diastolic 55–85; PULSE 63–106; RESP 16; TEMP 36.9–37.5; O2SAT 97–98; BMI 25.7
[2022-01-10 05:02] LABS: ROM Internal Control Test YES-OK TO RESULT pt. (Internal QC)
[2022-01-10 05:03] LABS: ROM Patient Test POSITIVE (Negative)
[2022-01-10 05:39] LABS: Absolute Lymphocyte Count 1.44 X10^3/uL (0.83-4.51); Absolute Neutrophil Count 6.9 X10^3/uL (2.0-7.7); Basophil# 0.03 X10^3/uL; Basophil% 0.3 % (0-1); Eosinophils% 1.1 % (0-5); Hematocrit 38.9 % (37-47); Hemoglobin 12.8 g/dL (12.0-15.0); Lymphocyte # 1.44 X10^3/ul (0.83-4.51); Lymphocyte % 15.9 % (19-41); Mean Corp Hgb Conc 32.9 g/dL (32-36); Mean Corpuscular Hgb 30.3 pg (27.0-32.0); Mean Platelet Vol. 10.4 fl (6.2-12.0); Monocyte# 0.57 X10^3/uL; Monocyte% 6.3 % (0-10); NRBC Flagged by Analyzer 0 % (0-5); Neutrophil # 6.87 X10^3/uL (2.7-7.7); Neutrophil % 76.1 % (47-70); Platelet Count 202 K/mm3 (150-450); RBC Distribution Width CV 12.8 % (11.6-14.6); Red Blood Count 4.23 M/mm3 (4.2-5.4)
[2022-01-10] MEDS: Lactated Ringers 1,000 ML 200 ML IV (05:39)
--- NOTE | 2022-01-10 07:36 | HP.PCM.OB_ITS ---
HPI - General General Date of Admission: 01/10/22 HPI Narrative DELMY FLORES, is a 31 F who presents IAL SROM clear fluid made change from 2 to 4 cm. no vb good fm Maternal Data Information BEATA Calculator Estimated Delivery Date Method Current WG Current Estimate 01/05/22 LMP (Certain) 40w 5d Other Estimates 01/05/22 Ultrasound #1 40w 5d PFSH PFSH Medical History (Updated 01/10/22 @ 07:[address] Mendy Harris MD) Scoliosis Medical History no medical history Home Medications vitamin#30 30 mg iron-10 mg iron-folic acid 1 mg-omg3 capsule cap PO 06/02/21 [History Last Taken 01/09/22 09:00 1 tab] Allergy/AdvReac Type Severity Reaction Status Date / Time latex AdvReac Severe lips swell Verified 01/10/22 04:50 Family History Other Asthma Hypertension Family History no significant family his Surgical History no surgical history Social History number of children: 3 current occupation: Stay at home mom Smoking Status: Never smoker alcohol intake: never substance use type: does not use caffeine: Yes (3 times a week) what type of physical activity do you participate in: walking seatbelt use: always do you feel safe at home: Yes additional social history: [employer] History 3 Elective abortions Hx Para 3 Spontaneous abortions Hx # Term Pregnancies 3 Ectopic pregnancies Hx # Pregnancies Multiple births # of living children 3 Past Pregnancies Del. Date Name GA/Weeks Outcome Route Bth Weight Gen Labor Lgth Anesthesia Del Locatn Provider FOB 08/14/16 Sy 40 live - full term 7 lbs 15 oz. Mal e 13 hours epidural [facility] 07/02/18 Nithin 41 live - full term 7lbs 15oz Male 4 h ours epidural [facility] 05/18/20 Ami 41 live - full term 7lbs Female [facility] Alisha Delivery Date: 07/02/18 Last Updated by: Renetta Connolly Post dates Delivery Date: 05/18/20 Last Updated by: Alessandra Murcia admitted in active labor. uncomplicated vaginal delivery Visit Details Expected Delivery Route/Plan Labor Preferences- labor support person: hever labor intervention preferences: none pain management options preferred: epidural cut cord/dad catch: [] : [] PP control planned: [] discussed possible routes of delivery and associated risks: [] special requests: [] Plans Covid status: discussed Flu vaccine: discussed Tdap vaccine: given Rhogam: na LARC form signed: declined movement and labor precautions reviewed. Problem list reviewed and updated with the most current plan of care details and appropriate orders placed. Relevant counseling for the gestational age provided. Continue routine care and follow up unless otherwise noted in visit notes/problem list details OB Flowsheet Initial Weight: 114 lb Date -?-?-?-?-?-?-?-?-?-?-?-?- EGA Weight BP Urine Prot -?-?-?-?-?-?-?-?-?-?-?-?- Glucose FHR FuHt Pres Dilation -?-?-?-?-?-?-?-?-?-?-?-?- Effaced St Visit Note 06/02/21 -?-?-?-?-?-?-?-?-?-?-?-?- 9w 0d 114 lb (+0 oz) -?-?-?-?-?-?-?-?-?-?-?-?- 170 -?-?-?-?-?-?-?-?-?-?-?-?- SM- CRL 2.1cm co ns with LMP 07/03/21 -?-?-?-?-?-?-?-?-?-?-?-?- 13w 3d 119 lb 4 oz (+5 lb 4 oz) 118/70 Negative -?-?-?-?-?-?-?-?-?-?-?-?- Negative 160 -?-?-?-?-?-?-?-?-?-?-?-?- JV- no lof, vagi nal bleeding or dec fm. still having some GI side effects from abx. FAIZA for UTI collected. 07/28/21 -?-?-?--?-?-?-?-?-?-?-?-?- 17w 0d 126 lb 4 oz (+12 lb 4 oz) 112/60 Negative -?-?-?-?-?-?-?-?-?-?-?-?- Negative 147 -?-?-?-?-?-?-?-?-?-?-?-?- MH-No VB, LOF. S tarted wearing abd band due to sep recti. Discussed avoid heavy lifting. 08/28/21 -?-?-?-?-?-?-?-?-?-?-?-?- 21w 3d 132 lb (+18 lb) 106/65 Negative -?-?-?-?-?-?-?-?-?-?-?-?- Negative 147 -?-?-?-?-?-?-?-?-?-?-?-?- JV- normal anato my scan. recommend compression stockings for some dizziness. 09/22/21 -?-?-?-?-?-?-?-?-?-?-?-?- 25w 0d 132 lb (+18 lb) 94/62 Negative -?-?-?-?-?-?-?-?-?-?-?-?- Negative 145 25 -?-?-?-?-?-?-?-?-?-?-?-?- SM- no vb lof go od fm no regular ctx 10/10/21 -?-?-?-?-?-?-?-?-?-?-?-?- 27w 4d 137 lb (+23 lb) 120/62 Negative -?-?-?-?-?-?-?-?-?-?-?-?- Negative 150 28 -?-?-?-?-?-?-?-?-?-?-?-?- SM- no vb lof go od fm no regular ctx 10/30/21 -?-?-?-?-?-?-?-?-?-?-?-?- 30w 3d 140 lb 2 oz (+26 lb 2 oz) 108/66 Negative -?-?-?-?-?-?-?-?-?-?-?-?- Negative 155 32 -?-?-?-?-?-?-?-?-?-?-?-?- JV- normal 28 we ek labs, tdap today. 11/10/21 -?-?-?-?-?-?-?-?-?-?-?-?- 32w 0d 145 lb (+31 lb) 106/70 Negative -?-?-?-?-?-?-?-?-?-?-?-?- Negative 145 33 Cephalic -?-?-?-?-?-?-?-?-?-?-?-?- SM- no vb lof go od fm no regular ctx 11/27/21 -?-?-?-?-?-?-?-?-?-?-?--?- 34w 3d 143 lb 8 oz (+29 lb 8 oz) 122/66 Negative -?-?-?-?-?-?-?-?-?-?-?-?- Negative 145 34 Cephalic -?-?-?-?-?-?-?-?-?-?-?--?- JV- no lof, vagi nal bleeding, or dec fm. 12/08/21 -?-?-?-?-?-?-?-?-?-?-?-?- 36w 0d 148 lb (+34 lb) 129/66 Negative -?-?-?-?-?-?-?-?-?-?-?-?- Negative 145 36 Cephalic 0 .5 -?-?-?-?-?-?-?-?-?-?-?-?- SM- no vb lof go od fm no regular ctx 12/18/21 -?-?-?-?-?-?-?-?-?-?-?-?- 37w 3d 146 lb 4 oz (+32 lb 4 oz) 119/69 1+ -?-?-?-?-?-?-?-?-?-?-?-?- Negative 133 37 Cephalic -?-?-?-?-?-?-?-?-?-?-?-?- JV- declines exa m today. gbs pos. no lof, vaginal bleeding, or dec fm. 12/25/21 -?-?-?-?-?-?-?-?-?-?-?-?- 38w 3d 150 lb 4 oz (+36 lb 4 oz) 128/67 Negative -?-?-?-?-?-?-?-?-?-?-?-?- Negative 135 38 Cephalic -?-?-?-?-?-?-?-?-?-?-?-?- JV- no exam toda y. no lof, vaginal bleeding, or dec fm. no complaints. labor precautions discussed. 01/01/22 -?-?-?-?-?-?-?-?-?-?-?-?- 39w 3d 150 lb 4 oz (+36 lb 4 oz) 133/75 -?-?-?-?-?-?-?-?-?-?-?-?- 144 40 Cephalic -?-?-?-?-?-?-?-?-?-?-?-?- JV- plan for IOL if no labor in meantime. pt declines pelvic exam. no lof, vaginal bleeding, or dec fm 01/08/22 -?-?-?-?-?-?-?-?-?-?-?-?- 40w 3d 154 lb (+40 lb) 134/89 119/84 Negative -?-?-?-?-?-?-?-?-?-?-?-?- Negative 145 38 Cephalic 2 -?-?-?-?-?-?-?-?-?-?-?-?- 70 -1 JV- Bedsid e ultrasound shows 2 large pockets of water larger than 4x4 cm. plan for IOL next wednesday. 01/10/22 -?-?-?-?-?--?-?-?-?-?-?-?- 40w 5d 150 lb (+36 lb) 125/71 135/79 123/72 -?-?-?-?-?-?-?-?-?-?-?-?- -?-?-?-?-?-?-?-?-?-?-?-?- NST FHR Rate Baby A Baseline: 130 Variability:: Moderate Accelerations:: 15 x 15 Decelerations:: None NST Reactive:: Yes FHR Category:: Category I Uterine Activity:: q3-5 ROS Constitutional Constitutional: Reports systems reviewed and no addt'l complaints, except as documented ENT HEENT: Reports systems reviewed and no addt'l complaints, except as documented Cardiovascular Cardiovascular: Reports systems reviewed and no addt'l complaints, except as documented Respiratory/Chest Respiratory/Chest: Reports systems reviewed and no addt'l complaints, except as documented Gastrointestinal Gastrointestinal: Reports systems reviewed and no addt'l complaints, except as documented and nausea; Denies abdominal pain Genitourinary Genitourinary: Reports systems reviewed and no addt'l complaints, except as documented, contractions Details: present and frequency (regular ) and movement Details: present Musculoskeletal Musculoskeletal: Reports systems reviewed and no addt'l complaints, except as documented Integumentary Integumentary: Reports as per HPI Neurologic Neurologic: Reports systems reviewed and no addt'l complaints, except as documented Endocrine Endocrinology: Reports systems reviewed and no addt'l complaints, except as documented Vital Signs Vital Signs Vital Signs: 01/10/22 04:44 01/10/22 04:44 01/10/22 04:45 Temperature 98.4 F Temperature Source Pulse Rate 74 Blood Pressure 125/71 H BP Systolic 125 BP Diastolic 71 01/10/22 05:36 01/10/22 05:36 01/10/22 05:35 Temperature 99.0 F Temperature Source Pulse Rate 67 Blood Pressure 135/79 H BP Systolic 135 BP Diastolic 79 01/10/22 06:10 01/10/22 06:11 01/10/22 06:11 Temperature Temperature Source Temporal Pulse Rate 65 Blood Pressure 123/72 H BP Systolic 123 BP Diastolic 72 01/10/22 06:12 Temperature 98.6 F Temperature Source Pulse Rate Blood Pressure BP Systolic BP Diastolic Weight Weight: 150 lb Body Mass Index (BMI) 25.7 Physical Exam Const alert, oriented x3 and healthy appearing Constitutional Narrative: uncomfortable with contractions HEENT normocephalic and moist oral mucous membranes Head and Scalp: atraumatic Neck full ROM, no lymphadenopathy, supple and thyroid normal General: trachea midline Thyroid: thyroid normal Lymph Lymphatic: no lymphadenopathy noted Chest inspection of chest normal Resp normal respiratory effort Cardio regular rate GI normal to inspection, nondistended, normoactive bowel sounds, soft to palpation and non-tender Inspection: gravid external exam normal Bimanual Exam - Vag & Uterus: uterus non-tender Manual OB Exam: estimated gestational size appropriate, presentation cephalic, dilated, effaced and station Extremity normal to inspection General Extremity: Negative for edema Skin no rashes or lesions noted Neuro deep tendon reflexes 2+ bilaterally Motor Exam: strength 5/5 throughout and clonus absent Psych mental status grossly normal Labs Labs Labs: Blood Type O POSITIVE Antibody Screen NEGATIVE Hct 38.9 % (37-47) Hgb 12.8 g/dL (12.0-15.0) Obstetrics US Syphilis Total Ab Non-reactive Rubella IgG Antibody Reactive (Nonreactive) Hep Bs Antigen Non-Reactive (Nonreactive) Chlamydia DNA (JIAN) Negative (Negative) Neisseria gonorrhoeae DNA (JIAN) Negative (Negative) HIV 1&2 Antibody Non-Reactive (Nonreactive) Glucose 1 Hr 50 gm 82 mg/dL (70-140) Rhogam given: No Assessment & Plan (1) Positive GBS test: COMMENT: PCN at delivery (2) History of tetanus, diphtheria, and acellular pertussis booster vaccination (Tdap): COMMENT: 10/30/21 (3) Diastasis of rectus abdominis: COMMENT: keli (4) Asymptomatic bacteriuria during : COMMENT: amoxicillin. repeat urine culture negative (5) Supervision of normal : QUALIFIERS: Normal : other normal Trimester: second trimester Qualified Code(s): Z34.82 - Encounter for supervision of other normal , second trimester COMMENT: PRR BEATA 01/05/22 surprise PC Nithin aDn Lydia Hever (6) : QUALIFIERS: Weeks of gestation: 40 weeks Qualified Code(s): Z3A.40 - 40 weeks gestation of COMMENT: genetic, carrier, and NTD screening declined. Anatomy normal (7) Active labor at term: PLAN: Plan Patient presents IAL, plan expectant management for , pitocin/AROM PRN if needed. Pain management: plans epidural. GBS positive plan IV PCN. Management of any complications: none I have reviewed the [facility] and made any clinically relevant updates.
[2022-01-10] MEDS: LACTATED RINGERS 500 ML 999 ML IV (08:00)
[2022-01-10] MEDS: Penicillin G 3,000,000 Units 50 ML 100 UNITS IV (10:03)
[2022-01-10] MEDS: Oxytocin 15 Units/NS 250ml 15 UNITS/250 ML IV.SOLN 2 UNITS IV (11:12)
[2022-01-10] MEDS: fentaNYL-bupivacaine (epidural) 100 ML BAG EPIDURAL (13:22)
--- NOTE | 2022-01-10 14:29 | OP.PCM_ITS ---
Assessment & Plan (1) : QUALIFIERS: Weeks of gestation: 40 weeks Qualified Code(s): Z3A.40 - 40 weeks gestation of COMMENT: genetic, carrier, and NTD screening declined. Anatomy normal (2) Supervision of normal : QUALIFIERS: Normal : other normal Trimester: second trimester Qualified Code(s): Z34.82 - Encounter for supervision of other normal , second trimester COMMENT: PRR BEATA 01/05/22 surprise PC Nithin Dan, Ami Hever (3) Asymptomatic bacteriuria during : COMMENT: amoxicillin. repeat urine culture negative (4) Diastasis of rectus abdominis: COMMENT: binder (5) History of tetanus, diphtheria, and acellular pertussis booster vaccination (Tdap): COMMENT: 10/30/21 (6) Positive GBS test: COMMENT: PCN at delivery (7) Active labor at term: (8) Vaginal delivery: COMMENT: SM 40 IAL SROM suzette Roberts Maternal Data Information BEATA Calculator Estimated Delivery Date Method Current WG Current Estimate 01/05/22 LMP (Certain) 40w 5d Other Estimates 01/05/22 Ultrasound #1 40w 5d Vaginal Delivery Operative Information Date of Procedure: 01/10/22 Pre-Operative Diagnosis: IAL srom Post-Operative Diagnosis: same Surgery / Procedure Performed: Spontaneous Vaginal Delivery Type of Anesthesia: Epidural Special Medications: none Estimated Blood Loss: 100 Fluids Replaced: crystalloid Findings Description of Procedure: Patient began pushing and delivered the head in the DAVID presentation. The head was delivered atraumatically . The anterior and posterior shoulders delivered without complication followed by the rest of the and the infant was placed on the maternal abdomen. Delayed cord clamping was employed for approximately 60 seconds. Cord was clamped and cut and gentle traction was applied to the cord and the placenta delivered spontaneously immediately following it was noted to be intact with three-vessel cord. The perineum and vagina were inspected and noted to have no laceration. EBL was 100 cc. Patient and tolerated delivery well. Presentation: DAVID Amniotic Membrane Rupture Type: Spontaneous Amniotic Fluid Description: Clear Placental Delivery Description: Spontaneous Placenta Disposition: [facility] Cord Vessel Description: 3 Vessels Cord Entanglement: None Delayed Cord Clamping: Yes Post Vaginal Delivery Medications Given After Delivery: IV Pitocin Episiotomy Description: None Laceration: None Complication Complications: None Procedures Urinary/Genital [id number]: [id number] Vaginal Delivery [facility]
--- NOTE | 2022-01-10 14:30 | DCINST_ITS ---
Discharge Instructions Diet Discharge Diet: No restrictions Activity Discharge Activity: Return to Normal Activity, May Drive, May Shower and May Take a Tub Bath (in 4 weeks) May resume sexual activity in: 6-8 weeks (after seen by OB provider) Weight Bearing Status: Full weight bearing Lifting Restrictions: none Dressing / Incision Call your doctor if you observe: Fever of 101 or Higher, Inability to urinate, Using more than 1 pad per hour (for more than 2 hours in a row or more), Shortness of breath, Dizziness, Chest pain and - (headache not controlled with tylenol, change in vision) Follow Up Care When: in 6 weeks for visit, call the office to make the appointment. If you had elevated blood pressures call the office to be seen within 1 week. Test Results: Test results from this visit will be discussed in further detail at your follow- up appointment, if applicable. Discharge Plan Admission Admit Date/Time: 01/10/22 05:05 Attending Provider: Mendy Harris Primary Care Provider: Care Physician,Kisha Primary Discharge Orders/Prescriptions Prescriptions: No Action PNV #[id number] 30 mg iron-10 mg iron-1 mg capsule PO Referrals / Follow Up: Care Physician,No Primary [Primary Care Provider] - Disposition Disposition (needs filled in before D/C Order can be placed): Home, Self Care
[2022-01-10] MEDS: Acetaminophen 500 MG Tablet PO (15:47)
[2022-01-10] MEDS: Naproxen 500 MG Tablet PO (19:18)
[2022-01-10] MEDS: Acetaminophen 500 MG Tablet 1000 MG PO (21:56)
[2022-01-11 00:31] VITALS: BP 117/60; PULSE 77; RESP 16; TEMP 36.2
[2022-01-11 04:00] VITALS: BP 111/60; PULSE 78; RESP 17; TEMP 36.4
[2022-01-11] MEDS: Naproxen 500 MG Tablet PO (04:03)
[2022-01-11] MEDS: Acetaminophen 500 MG Tablet 1000 MG PO (04:03)
--- NOTE | 2022-01-11 05:12 | PCM.PN.OB ---
Subjective Subjective Patient doing well without complaints. Tolerating PO. Ambulating and voiding without difficulty. feeding well. Denies chest pain, shortness of breath, calf pain/swelling, fevers, chills, lightheadedness. Objective Data Objective Data Vital Signs: Vital Signs Temp Pulse Resp BP Pulse Ox 97.6 F L 78 17 111/60 97 01/11/22 04:00 01/11/22 04:00 01/11/22 04:00 01/11/22 04:00 01/10/22 08:32 Weight: 150 lb Body Mass Index (BMI) 25.7 Intake & Output: Intake and Output for Last 24 Hours 01/09/22 01/10/22 01/11/22 23:59 23:59 23:59 Intake Total 1905.00 / 1905.00 Output Total 200 / 200 450 / 450 Balance 1705.00 / 1705.00 -450 / -450 Lab / Micro Data Result Diagrams: 01/10/22 05:20 Labs: Laboratory Results - last 24 hr 01/10/22 05:20: WBC 9.0, RBC 4.23, Hgb 12.8, Hct 38.9, MCV 92.0, MCH 30.3, MCHC 32.9, RDW Std Deviation 43.0, RDW Coeff of Dung 12.8, Plt Count 202, MPV 10.4, Immature Gran % (Auto) 0.300, Neut % (Auto) 76.1 H, Lymph % (Auto) 15.9 L, [place] % (Auto) 6.3, Eos % (Auto) 1.1, Baso % (Auto) 0.3, Absolute Neuts (auto) 6.9, Absolute Lymphs (auto) 1.44, Nucleated RBC % 0 01/10/22 05:20: Blood Type O POSITIVE, Antibody Screen NEGATIVE Micro: Microbiology 01/10/22 05:20 Nasal Secretion SARS-CoV-2 Antigen (Rapid) - Final ROS Constitutional Constitutional: Reports systems reviewed and no addt'l complaints, except as documented Cardiovascular Cardiovascular: Reports systems reviewed and no addt'l complaints, except as documented Respiratory/Chest Respiratory/Chest: Reports systems reviewed and no addt'l complaints, except as documented Gastrointestinal Gastrointestinal: Reports systems reviewed and no addt'l complaints, except as documented Physical Exam Const alert, oriented x3 and no apparent distress HEENT Head and Scalp: atraumatic Resp normal respiratory effort GI soft to palpation and non-tender Bimanual Exam - Vag & Uterus: uterus non-tender Uterus Palpation: uterus fundus firm (below Umbilicus) Assessment & Plan (1) Vaginal delivery: COMMENT: SM 40 IAL SROM suzetet Roberts PLAN: Plan s/p PPD # 1 1. routine post delivery care 2. breast feeding- support given 3. rh positive 4. rubella immune
[2022-01-11 10:00] VITALS: BP 139/67; PULSE 70; RESP 16; TEMP 36.3
[2022-01-11 15:00] VITALS: BP 139/67; PULSE 70; RESP 16; TEMP 36.3
== END 2022-01-11 15:45 | disposition home or self-care (01) | DRG 807 ==
LOC: WPOUT 05:20 → WP 05:20
PROVIDERS: Admitting Provider Obstetrics & Gynecology; Visit Provider Obstetrics & Gynecology
DX: O99.824 Streptococcus B carrier state complicating childbirth (principal); Z37.0 Single live birth; O71.89 Other specified obstetric trauma; R82.71 Bacteriuria; Z3A.40 40 weeks gestation of pregnancy
CPT/HCPCS: 59025; 59050; 84112; 85025; 86850; 86900; 86901; 87426; 99218; J7120; G0378

== ENCOUNTER → 2023-08-12 | Outpatient (CLI) | payer OTHER, SELFPAY ==
--- NOTE | 2023-08-12 11:30 | RAD_ITS ---
STUDY: X-RAY - LEFT HAND, ATTENTION INDEX FINGER REASON FOR EXAM: Female, 33 years old. Crush injury with hematoma left index finger -- looking for associated fracture distal phalanx TECHNIQUE: 3 view(s) of the finger were obtained. COMPARISON: None. FINDINGS: Normal metacarpal head. Normal metacarpophalangeal joint. Normal proximal phalanx. Normal middle phalanx. Normal distal phalanx. Normal proximal interphalangeal joint. Normal distal interphalangeal joint. Soft tissue swelling overlying the dorsal aspect of the distal phalanx of the index finger. RAD/Finger(s) Min 2 Views IMPRESSION: Focal soft tissue swelling overlying the distal phalanx of the index finger. No fracture or dislocation is seen. Electronically Signed: Xander Burks MD at 14:19 EDT ,
== END | disposition home or self-care (01) ==
LOC: RAD 11:20
PROVIDERS: PCP Family Medicine; Referring Provider Surgery; Visit Provider Surgery
DX: S67.191A Crushing injury of left index finger, initial encounter (principal); S60.122A Contusion of left index finger with damage to nail, initial encounter
CPT/HCPCS: 73140

== ENCOUNTER 2023-08-26 09:57 | Day surgery (SDC) | payer OTHER, SELFPAY ==
[2023-08-26 10:17] VITALS: BP 114/72; PULSE 64; RESP 16; TEMP 36.6; O2SAT 100; BMI 19.3
[2023-08-26] MEDS: Lactated Ringers 1,000 ML 15 ML IV (10:26)
[2023-08-26 12:20] VITALS: BP 104/59; O2SAT 100
[2023-08-26 12:22] VITALS: BP 104/55; BP 106/69; BP 108/74; BP 110/61; BP 110/72; BP 113/60; BP 113/71; BP 114/59; BP 115/56; BP 117/65; BP 122/77; BP 98/54; O2SAT 100
[2023-08-26] MEDS: Lidocaine 1% /Epi 1:100 (20ml) 20 ML Vial (12:40)
[2023-08-26] MEDS: Mupirocin Ointment 22gm Tube 1 APPLIC (12:40)
--- NOTE | 2023-08-26 14:18 | OP.PCM_ITS ---
Problems Associated Problem List Diagnoses (1) Crushing injury of left index finger, initial encounter: (2) Subungual hematoma of left index finger: (3) Contusion of left index finger with damage to nail, initial encounter: (4) Paresthesias in left hand: (5) Early stage of : Report of Operation Date of Procedure: 08/26/23 Pre-Operative Diagnosis: 1. Crush injury left index finger tip with damage to nail. 2. Subungual hematoma left index finger tip. 3. Contusion eponychial fold left index finger tip with damage to nail. 4. Paresthesias left index finger tip. Post-Operative Diagnosis: 1. Crush injury left index finger tip with damage to nail. 2. Subungual hematoma left index finger tip. 3. Contusion eponychial fold left index finger tip with damage to nail. 4. Paresthesias left index finger tip. 5. Nail bed injury left index finger tip. Surgery/Procedure Performed:: 1. Excisional debridement crush injury left index finger tip with evacuation subungual hematoma. 2. Repair nail bed injury left index finger tip. 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 She thought it would heal initially. After about a month, she was concerned about discoloration under the nail and bruising in the eponychial area. She went to the Urgent Care last week and was placed on Augmentin. She complains of some tingling in the finger tip. Patient is right hand dominant. She has been able to work after the accident. She denies fever. She presents at this time for further evaluation and treatment. An x-ray of her left index finger was done on 08/12/23. It showed focal soft tissue swelling overlying the distal phalanx of the index finger. No fracture or dislocation is seen. Patient was informed of the risks and complications of the procedure including alternatives to surgery. These were discussed with the patient personally. Patient voices understanding and wishes to proceed. Some of the risks and complications were included in a form from the [place] [employer]. Some of the risks and complications that were discussed included but were not inclusive of failure to diagnose including symptom relief, pain, infection, numbness, stiffness, loss of digit, RSD (CRPS), need for further surgery, cont racture, and wound healing problems. Total tourniquet time - 16 minutes. Surgeon: Madan Dawson MD plant operator helper: None Type of Anesthesia: Local (metacarpal digital block with xylocaine with epinephrine. Patient is , first trimester.) Anesthesiologist: None. Specimen's removed: None. Drains: None. Estimated Blood Loss (mL): 2. Description of Procedure: Patient was taken to OR in supine position. Patient is , first trimester so will proceed with local anesthesia. The left hand was prepped and draped in the usual fashion. SCD's were placed for DVT prophylaxis. A digital metacarpal block left index finger was administered with xylocaine and epinephrine. After waiting 5 minutes for the anesthetic to take effect, a digital tourniquet was applied at the base of the left index finger. At the eponychial fold preop there was a larger contusion with ecchymosis at the eponychial fold. Today there was dried exudative fluid present at the level of the eponychial fold. I was able to peel it off the eponychial fold. The eponychial fold appeared intact. The fluid probably leaked out through the eponychial fold. I took a scalpel and gently elevated the nail plate off the nail bed starting distally at the hyponychium. After removing the nail plate I debrided and evacuated a subungual hematoma. A nail bed injury was present. There was no exposed distal phalanx bone. Using 7-0 Vicryl I repaired the nail bed laceration with simple interrupted sutures. Clinically there was no evidence of infection. I then trimmed the nail plate and removed any residual dried blood. I replaced the nail plate and secured it with 5-0 Nylon simple interrupted sutures. These nylon sutures will be removed in 2 weeks as the new nail will start growing proximally to distally. I discussed with the patient that during the healing process, the existing nail plate may come off as proximal nail growth occurs. I removed the digital tourniquet after 16 minutes. Hemostasis was easily obtained with gauze compression. At the end of the procedure, I place Xeroform gauze over the nail plate with antibiotic ointment. This was followed by 2 inch Tyrell wrap and a small jasmin wrap. She will place a plastic bag over the left hand when showering. I will remove the operative dressing in the office. Patient tolerated the procedure well and was sent to [facility] in satisfactory condition. Patient will be sent home on antibiotics and pain medication. She will check with her OB before obtaining the scripts to make sure it is safe to take the medications during her . Patient will followup in a week for a wound check. The sutures will be removed in two weeks. Grafts/Implants Used: None. Procedure Start Time: 12:40 Procedure Stop Time: 13:30 Complications None. Admit VTE Documentation VTE Present on Admission: No VTE Mechan Device Prophylaxis: SCD's VTE Pharm Prophylaxis ordered?: No Addendum Addendum: Surgery Charges CPT - 53682 ICD-10 - S67.191A, S60.122A, R20.2, Z34.90 09464 S67.191A, S60.122A, R20.2, Z34.90
--- NOTE | 2023-08-26 14:18 | PCM.DC ---
Discharge Instructions Diet Discharge Diet: No restrictions Activity Discharge Activity: May Drive (when not taking pain medication.), May Shower (wear plastic bag over left hand when showering.) and - (elevate left hand. no heavy lifting.) May shower in (days): 1 (wear plastic bag over left hand when showering.) May resume sexual activity in: 10-14 days Weight Bearing Status: Weight bearing as tolerated Lifting Restrictions: 10 lbs. Keep extremity elevated above heart level: Left Arm Dressing / Incision Call your doctor if your incision/area has: Continuous Slow Oozing, Sudden Increased Bleeding, Increased Pain/ Swelling, Increased Redness, Foul Smelling Discharge and Swelling at the incision site Call your doctor if you observe: Fever of 101 or Higher, Coldness, Increased Pain, Shortness of breath, Chest pain, Calf discomfort and Uncontrolled pain Change Dressing in: do not change dressing (will change operative dressing in office.) Cleanse incision/area with: Keep Dressing Clean & Dry (wear plastic bag over left hand when showering.) Follow Up Care Please Follow Up With: Madan Dawson MD When: wednesday09/01/23. call [phone] for appt. Test Results: Test results from this visit will be discussed in further detail at your follow-up appointment, if applicable. Discharge Plan Admission Primary Reason for Your Visit: exploration crush injury left index finger with damage to nail Attending Provider: Madan Dawson Primary Care Provider: Ramirez Saunders Instructions Additional Instructions / Restrictions: Please check with your OB Physician if it is ok to take Keflex, Percocet, and the Probiotic. Print Language: Luxembourger Discharge Orders/Prescriptions Prescriptions: New cephalexin 500 mg capsule 500 mg PO TID Qty: 12 0RF L.acidoph,saliva-B.bif-S.therm [Acidophilus Probiotic Blend] 175 mg capsule 1 cap PO DAILY Qty: 10 0RF oxycodone-acetaminophen [Percocet] 5-325 mg tablet 1 tab PO BID 5 Days Qty: 10 0RF Rx Instructions: 10 tabs (ten) Check with OB Physician if OK to take this medication Continued PNV cmb#95-ferrous fumarate-FA [ Multivitamins] 28 mg iron- 800 mcg tablet 1 tab PO DAILY Referrals / Follow Up: Ramirez Saunders MD [Primary Care Provider] - Madan Dawson MD [Med Staff - Active Staff] - Within 1 Week Yuliana Rodriguez DO [Med Staff - Active Staff] - (Please check with Dr. Rodriguez if it is ok to take Keflex, Percocet, and Probiotic.) Disposition Disposition (needs filled in before D/C Order can be placed): Home, Self Care
== END 2023-08-26 14:31 | disposition home or self-care (01) ==
LOC: SDC 09:57 → AC 10:00
PROVIDERS: PCP Family Medicine; Referring Provider Surgery; Visit Provider Surgery
PROC: (CPT 11740; principal; 2023-08-26 10:40)
DX: O9A.211 Injury, poisoning and certain other consequences of external causes complicating pregnancy, first trimester (principal); O99.891 Other specified diseases and conditions complicating pregnancy; S67.191A Crushing injury of left index finger, initial encounter; S60.122A Contusion of left index finger with damage to nail, initial encounter; R20.2 Paresthesia of skin; W23.0XXA Caught, crushed, jammed, or pinched between moving objects, initial encounter; Z3A.00 Weeks of gestation of pregnancy not specified
CPT/HCPCS: 11740; 11760; J0295

== ENCOUNTER → 2023-09-13 | Outpatient (CLI) | payer OTHER, SELFPAY ==
[2023-09-16 06:09] LABS: Chlamydia By Nucleic Acid AMP Negative (Negative); Gonococcus By Nucleic Acid AMP Negative (Negative)
== END | disposition home or self-care (01) ==
LOC: LABSPEC 14:19
PROVIDERS: PCP Family Medicine; Referring Provider Obstetrics & Gynecology; Visit Provider Obstetrics & Gynecology
DX: Z34.90 Encounter for supervision of normal pregnancy, unspecified, unspecified trimester (principal); Z3A.00 Weeks of gestation of pregnancy not specified
CPT/HCPCS: 87086; 87491; 87591

== ENCOUNTER → 2023-10-21 | Outpatient (CLI) | payer OTHER, SELFPAY ==
--- NOTE | 2023-10-21 10:46 | US_ITS ---
STUDY: ULTRASOUND BREAST - RIGHT REASON FOR EXAM: Female, 33 years old. Palpable lump in the lateral aspect of the right breast. The patient is 17 weeks . TECHNIQUE: Axial and longitudinal images of the RIGHT breast were performed with a high resolution ultrasound transducer. # OF IMAGES: 24 COMPARISON: None. FINDINGS: RIGHT Breast: There is a 5 mm x 4 mm x 2 mm cyst in the superficial aspect of the right breast at the 9:00 position breast a 1 cm from nipple. This most likely represents a sebaceous cyst. US/Breast Limited Unilateral IMPRESSION: The palpable abnormality corresponds to a 5 mm x 4 mm x 2 mm hypoechoic/cyst in the superficial aspect of the right breast as described. This most likely represents a sebaceous cyst. ASSESSMENT CATEGORY: BIRADS Category 2: Benign. A letter regarding these results will be sent to the patient by the facility within 30 days. Electronically Signed: Xander Burks MD at 15:17 EDT ,
== END | disposition home or self-care (01) ==
LOC: OPUS 10:46
PROVIDERS: PCP Family Medicine; Referring Provider Obstetrics & Gynecology; Visit Provider Obstetrics & Gynecology
DX: O92.29 Other disorders of breast associated with pregnancy and the puerperium (principal); Z3A.16 16 weeks gestation of pregnancy
CPT/HCPCS: 76642

== ENCOUNTER → 2023-11-18 | Outpatient (CLI) | payer OTHER, SELFPAY ==
--- NOTE | 2023-11-18 12:27 | US_ITS ---
STUDY: SECOND AND THIRD TRIMESTER OBSTETRICAL ULTRASOUND REASON FOR EXAM: Female, 33 years old anatomy US LMP: June 23, 2023. TECHNIQUE: Transabdominal TECHNICAL QUALITY: Adequate. PRIOR ULTRASOUND: None. FINDINGS: There is a single intrauterine fetus. The fetus is in a cephalic presentation. There is demonstrated cardiac activity with a heart rate of 153 bpm. There is a normal amniotic fluid volume. The largest amniotic fluid pocket measures 5.2 cm. The amniotic fluid index (MARY) is within normal limits. The placenta is fundal in location. There are Grade 0 placental changes. The cervix measures 3.1 cm in length. The adnexal regions are not visualized. BIOMETRY: BPD: 5.09 cm: 21 weeks, 3 days HC: 18.93 cm: 21 weeks, 2 days AC: 15.96 on: 21 weeks, 1 days FL: 3.57 cm: 21 weeks, 2 days CI: 80% FL/BPD: 70% FL/HC: 19% FL/AC: 22% HC/AC: 1.19 age by current US: 21 weeks, 0 days. BEATA by current US: March 30, 2024. Estimated weight: 409 grams, +/- 61 grams, 49 %. Age by LMP: 21 weeks, 1 days. BEATA by LMP: March 29, 2024. ANATOMY: Gender: Indeterminant Cranium: Normal lateral ventricles. Normal choroid plexus. Normal cerebellum. Normal cisterna magna. Normal face, nose and lips. Chest: Normal 4-chamber heart. Abdomen/Pelvis: Normal diaphragm. Normal stomach. Normal abdominal wall. Normal cord insertion. Normal 3 vessel cord. Normal kidneys. Normal bladder. Spine: Normal cervical spine. Normal thoracic spine. Normal lumbar spine. Normal sacrum. Extremities: Normal bilateral upper extremities. Normal bilateral lower extremities. US/OB Anatomy Scan IMPRESSION: Single live intrauterine gestation with a mean gestational age of 21 weeks. Electronically Signed: Xander Burks MD at 14:40 EDT ,
== END | disposition home or self-care (01) ==
LOC: US 12:25
PROVIDERS: PCP Family Medicine; Referring Provider Advanced Practice Midwife; Visit Provider Advanced Practice Midwife
DX: Z34.90 Encounter for supervision of normal pregnancy, unspecified, unspecified trimester (principal)
CPT/HCPCS: 76805

== ENCOUNTER → 2024-01-07 | Outpatient (CLI) | payer OTHER, SELFPAY ==
[2024-01-07 10:44] LABS: Absolute Lymphocyte Count 1.03 X10^3/uL (0.83-4.51); Absolute Neutrophil Count 7.5 X10^3/uL (2.0-7.7); Basophil# 0.05 X10^3/uL; Basophil% 0.6 % (0-1); Eosinophil# 0.05 X10^3/uL; Eosinophils% 0.6 % (0-5); Hematocrit 35.2 % (37-47); Hemoglobin 11.5 g/dL (12.0-15.0); Lymphocyte # 1.03 X10^3/ul (0.83-4.51); Lymphocyte % 11.4 % (19-41); Mean Corp Hgb Conc 32.7 g/dL (32-36); Mean Corpuscular Hgb 29.9 pg (27.0-32.0); Mean Corpuscular Volume 91.4 fL (81-99); Mean Platelet Vol. 10.1 fl (6.2-12.0); Monocyte# 0.39 X10^3/uL; Monocyte% 4.3 % (0-10); NRBC Flagged by Analyzer 0 % (0-5); Neutrophil # 7.48 X10^3/uL (2.7-7.7); Neutrophil % 82.8 % (47-70); Platelet Count 222 K/mm3 (150-450); RBC Distribution Width CV 12.6 % (11.6-14.6); RBC Distribution Width SD 41.5 fl (35.1-43.9); Red Blood Count 3.85 M/mm3 (4.2-5.4)
[2024-01-07 11:17] LABS: Glucose Challenge Gest 1H 50g 84 mg/dL (70-140)
[2024-01-07 11:57] LABS: HIV - WCH Non-Reactive (Nonreactive); Hepatitis B Surface Antigen Non-Reactive (Nonreactive); Hepatitis C Antibody Non-Reactive (Nonreactive); Rubella IgG Reactive (Nonreactive); Syphilis Antibodies Non-reactive
== END | disposition home or self-care (01) ==
PROVIDERS: Obstetrics & Gynecology; PCP Family Medicine; Referring Provider Obstetrics & Gynecology; Visit Provider Obstetrics & Gynecology
DX: Z34.90 Encounter for supervision of normal pregnancy, unspecified, unspecified trimester (principal)
CPT/HCPCS: 36415; 82950; 85025; 86703; 86762; 86780; 86803; 86850; 86900; 86901; 87086; 87088; 87340

== ENCOUNTER → 2024-03-09 | Outpatient (CLI) | payer OTHER, SELFPAY | END | disposition home or self-care (01) | LOC: LABSPEC 15:08 | PROVIDERS: PCP Family Medicine; Referring Provider Obstetrics & Gynecology; Visit Provider Obstetrics & Gynecology | DX: Z34.90 Encounter for supervision of normal pregnancy, unspecified, unspecified trimester (principal) | CPT/HCPCS: 87081 ==

== ENCOUNTER → 2024-03-16 | Outpatient (CLI) | payer OTHER, SELFPAY ==
[2024-03-16 12:12] LABS: Protein:Creat Ratio 274 mg/g CRE (0-200)
[2024-03-16 13:26] LABS: Absolute Lymphocyte Count 1.25 X10^3/uL (0.83-4.51); Absolute Neutrophil Count 7.5 X10^3/uL (2.0-7.7); Basophil# 0.03 X10^3/uL; Basophil% 0.3 % (0-1); Eosinophil# 0.02 X10^3/uL; Eosinophils% 0.2 % (0-5); Hematocrit 38.2 % (37-47); Hemoglobin 12.5 g/dL (12.0-15.0); Lymphocyte # 1.25 X10^3/ul (0.83-4.51); Lymphocyte % 13.2 % (19-41); Mean Corp Hgb Conc 32.7 g/dL (32-36); Mean Corpuscular Hgb 28.5 pg (27.0-32.0); Mean Platelet Vol. 10.6 fl (6.2-12.0); Monocyte# 0.61 X10^3/uL; Monocyte% 6.4 % (0-10); NRBC Flagged by Analyzer 0 % (0-5); Neutrophil % 79.4 % (47-70); Platelet Count 242 K/mm3 (150-450); RBC Distribution Width CV 13.6 % (11.6-14.6); RBC Distribution Width SD 42.4 fl (35.1-43.9); Red Blood Count 4.39 M/mm3 (4.2-5.4); White Blood Count 9.5 K/mm3 (4.4-11.0)
[2024-03-16 13:51] LABS: ALB/GLOB Ratio 0.7 RATIO (0.9-2.4); AST(SGOT) 21 U/L (15-37); Alanine Aminotransfer ALT/SGPT 18 U/L (13-56); Albumin, Serum 2.7 g/dL (3.2-5.0); Alkaline Phosphatase 257 U/L (45-117); Anion Gap 5 (5-15); BUN 9 mg/dL (7-18); BUN/Creat Ratio 12.5 RATIO (10-20); Calcium,Total 9.2 mg/dL (8.5-10.1); Chloride 110 mmol/L (98-107); Creatinine, Serum 0.72 mg/dL (0.55-1.02); EST Glomerular Filtration Rate 99 mL/min (>60); Est Glom Filt Rate - Afr Amer 120 mL/min (>60); Glucose 119 mg/dL (74-106); Glucose Challenge Gest 1H 50g 119 mg/dL (70-140); Potassium 3.9 mmol/L (3.5-5.1); Protein, Total 6.7 g/dL (6.4-8.2); Sodium Level 138 mmol/L (136-145)
== END | disposition home or self-care (01) ==
LOC: LABSPEC 11:40 → LAB 12:49
PROVIDERS: PCP Family Medicine; Referring Provider Advanced Practice Midwife; Visit Provider Advanced Practice Midwife
DX: R80.9 Proteinuria, unspecified (principal)
CPT/HCPCS: 36415; 80053; 82570; 82950; 84156; 85025

== ENCOUNTER 2024-03-24 12:50 | Outpatient (CLI) | payer OTHER, SELFPAY ==
--- NOTE | 2024-03-24 13:25 | US_ITS ---
STUDY: OBSTETRICAL ULTRASOUND - BIOPHYSICAL PROFILE REASON FOR EXAM: Female, 34 years old nonreactive nonstress test LMP: 06/23/2023 PRIOR ULTRASOUND: 11/18/2023 TECHNIQUE: Transabdominal TECHNICAL QUALITY: Adequate. FINDINGS: There is a single intrauterine fetus. The fetus is in a cephalic presentation. There is demonstrated cardiac activity with a heart rate of 124 bpm. There is a normal amniotic fluid volume. The largest amniotic fluid pocket measures 7.4 cm. The amniotic fluid index (MARY) is 14.6 cm. The placenta is posterior in location and is not low lying. There are Grade 2 placental changes. Age by LMP: 39 weeks, 2 days. EBATA by LMP: 03/29/2024. BIOPHYSICAL PROFILE: Breathing Movements (FBM): 2 Gross Body Movements (GBM): 2 Tone (FT): 2 Amniotic Fluid Volume (AFV): 2 TOTAL SCORE: US/Biophysical Prof W/O Non Stres IMPRESSION: Normal biophysical profile of 11/03. Electronically Signed: Sj Albarado MD at 17:31 EST ,
[2024-03-24 13:28] VITALS: BMI 27.2
[2024-03-24 13:50] VITALS: PULSE 78; O2SAT 99
[2024-03-24 13:55] VITALS: PULSE 71; O2SAT 99
[2024-03-24 14:00] VITALS: PULSE 82; O2SAT 99
[2024-03-24 14:55] VITALS: RESP 15; TEMP 36.7
--- NOTE | 2024-03-25 01:44 | OB.TRI.PN ---
Progress Notes Date of Service: 03/24/24 Progress Note: seen secondayr to variable fht had nst in office and was noted, here for BPP / and no significant decels. dc home. 39 weeks Assessment & Plan (1) : QUALIFIERS: Weeks of gestation: 39 weeks Qualified Code(s): Z3A.39 - 39 weeks gestation of COMMENT: Neg GBS. genetic, carrier, and NTD screening declined, normal anatomy (2) Variable heart rate decelerations, antepartum: (3) Supervision of normal : COMMENT: PRR, BEATA PC Nithin Dan Lydia, Logan Hever
== END 2024-03-24 15:45 | disposition home or self-care (01) ==
LOC: WPOUT 12:58 → WP 13:00
PROVIDERS: PCP Family Medicine; Referring Provider Registered Nurse; Visit Provider Registered Nurse
DX: Z34.93 Encounter for supervision of normal pregnancy, unspecified, third trimester (principal)
CPT/HCPCS: 59025; 59050; 76819; 99221; G0378

== ENCOUNTER → 2024-03-28 | Outpatient (CLI) | payer OTHER, SELFPAY ==
[2024-03-28 12:40] LABS: Protein, Urine (Random) 14.2 mg/dL (<11.9); Protein:Creat Ratio 288 mg/g CRE (0-200)
== END | disposition home or self-care (01) ==
LOC: LABSPEC 11:55
PROVIDERS: PCP Family Medicine; Referring Provider Advanced Practice Midwife; Visit Provider Advanced Practice Midwife
DX: R80.9 Proteinuria, unspecified (principal)
CPT/HCPCS: 82570; 84156

== ENCOUNTER 2024-03-31 09:44 | Inpatient (IN) | payer OTHER, SELFPAY ==
[2024-03-31] VITALS (46 sets, daily range): BP systolic 112–155; BP diastolic 56–88; PULSE 64–115; RESP 16; TEMP 36.7; O2SAT 80–100; BMI 25.8
[2024-03-31] MEDS: Lactated Ringers 1,000 ML 50 ML IV (10:06)
[2024-03-31] MEDS: Oxytocin 15 Units/NS 250ml 15 UNITS/250 ML IV.SOLN 2 UNITS IV ×2 (10:35)
[2024-03-31 10:53] LABS: Absolute Lymphocyte Count 1.09 X10^3/uL (0.83-4.51); Absolute Neutrophil Count 6.7 X10^3/uL (2.0-7.7); Basophil# 0.04 X10^3/uL; Basophil% 0.5 % (0-1); Eosinophil# 0.01 X10^3/uL; Eosinophils% 0.1 % (0-5); Hematocrit 36.3 % (37-47); Hemoglobin 11.9 g/dL (12.0-15.0); Lymphocyte # 1.09 X10^3/ul (0.83-4.51); Lymphocyte % 12.9 % (19-41); Mean Corp Hgb Conc 32.8 g/dL (32-36); Mean Corpuscular Hgb 28.3 pg (27.0-32.0); Mean Corpuscular Volume 86.2 fL (81-99); Mean Platelet Vol. 11.1 fl (6.2-12.0); Monocyte# 0.59 X10^3/uL; NRBC Flagged by Analyzer 0 % (0-5); Neutrophil # 6.66 X10^3/uL (2.7-7.7); Neutrophil % 78.8 % (47-70); Platelet Count 234 K/mm3 (150-450); RBC Distribution Width CV 13.9 % (11.6-14.6); RBC Distribution Width SD 43.2 fl (35.1-43.9); Red Blood Count 4.21 M/mm3 (4.2-5.4); White Blood Count 8.5 K/mm3 (4.4-11.0)
[2024-03-31 11:30] LABS: Syphilis Antibodies Non-reactive
[2024-03-31 12:05] LABS: Protein, Urine (Random) 46.9 mg/dL (<11.9); Protein:Creat Ratio 246 mg/g CRE (0-200)
--- NOTE | 2024-03-31 12:28 | HP.PCM.OB_ITS ---
HPI - General General Date of Admission: 03/31/24 Date of Service: 03/31/24 HPI Narrative DELMY FLORES, is a 34 F 40.2 weeks who presents to unit for IOL for advanced dilation and increased BP in the office. Pre e labs on admission show elevated PC ratio. Maternal Data Information BEATA Calculator Estimated Delivery Date Method Current WG Current Estimate 03/29/24 Ultrasound #1 40w 2d Other Estimates 04/25/24 LMP (Certain) 36w 3d Final BEATA: 03/29/24 Final BEATA Source: US >20 weeks Gestational age: 40.2 PFSH PFSH Medical History Crushing injury of left index finger, initial encounter Contusion of left index finger with damage to nail, initial encounter Subungual hematoma of left index finger Paresthesias in left hand Scoliosis Home Medications ?Medication ?Instructions ?Recorded ?Last Taken ?Type vit no.95-ferrous 1 tab PO DAILY 08/20/23 Unknown History fumarate 28 mg-folic acid 800 mcg tablet ( Multivitamins) Allergy/AdvReac Type Severity Reaction Status Date / Time latex AdvReac Severe lips swell Verified 03/31/24 08:55 Family History Other Asthma Hypertension Surgical History History of hand surgery Social History number of children: 4 current occupation: Stay at home mom Smoking Status: Never smoker alcohol intake: never substance use type: does not use caffeine: Yes (3 times a week) what type of physical activity do you participate in: walking seatbelt use: always do you feel safe at home: Yes additional social history: Hever WG Dairy History 5 Elective abortions Hx Para 4 Spontaneous abortions Hx # Term Pregnancies 4 Ectopic pregnancies Hx # Pregnancies Multiple births # of living children 4 Past Pregnancies Del. Date Name GA/Weeks Outcome Route Bth Weight Gen Labor Lgth Anesthesia Del Locatn Provider FOB 08/14/16 Sy 40 live - full term 7 lbs 15 oz. Mal e [address] [facility] 07/02/18 Nithin 41 live - full term 7lbs 15oz Male 4 h ours epidural [facility] 05/18/20 Ami 41 live - full term 7lbs Female [facility] Alisha 01/10/22 Armando 40 live - full term 8lbs 10oz Male [facility] Hever Delivery Date: 07/02/18 Last Updated by: Renetta Connolly Post dates Delivery Date: 05/18/20 Last Updated by: Alessandra Murcia admitted in active labor. uncomplicated vaginal delivery Delivery Date: 01/10/22 Last Updated by: Renetta Connolly IOL Visit Details Expected Delivery Route/Plan sv Labor Preferences- CB/BF classes: [] labor support person: [] labor intervention preferences: [] pain management options preferred: [] cut cord/dad catch: [] :yes PP control planned: vasectomy vs tubal. discussed possible routes of delivery and associated risks: [] special requests: if needs a c/s would like a tubal ligation. Plans Covid status: none Flu vaccine: declines Tdap vaccine: declined Rhogam: na LARC form signed: declined movement and labor precautions reviewed. Problem list reviewed and updated with the most current plan of care details and appropriate orders placed. Relevant counseling for the gestational age provided. Continue routine care and follow up unless otherwise noted in visit notes/problem list details OB Flowsheet Initial Weight: 115 lb 6 oz Date -?-?-?-?-?-?-?-?-?-?-?-?- EGA Weight BP Urine Prot -?-?-?-?-?-?-?-?-?-?-?-?- Glucose FHR FuHt Pres Dilation -?-?-?-?-?-?-?-?-?-?-?-?- Effaced St Visit Note 09/13/23 -?-?-?-?-?-?-?-?-?-?-?-?- 11w 5d 115 lb 6 oz (+0 oz) 120/77 -?-?-?-?-?-?-?-?-?-?-?-?- 158 -?-?-?-?-?-?-?-?-?-?-?-?- JV- CRL was off by more than LMP. BEATA is 03/29/24. Declines NIPT 10/15/23 -?-?-?-?-?-?-?-?-?-?-?-?- 16w 2d 120 lb 4 oz (+4 lb 14 oz) 111/75 Negative -?-?-?-?-?-?-?-?-?-?-?-?- Negative 135 -?-?-?-?-?-?-?-?-?-?-?-?- JV- no complaint s today. still needs to do labs. 11/08/23 -?-?-?-?-?-?-?-?-?-?-?-?- 19w 5d 126 lb (+10 lb 10 oz) 126/69 Negative -?-?-?-?-?-?-?-?-?-?-?-?- 500 g/dL 144 -?-?-?-?-?-?--?-?-?-?-?-?- KW-no vb/ctx. po ssible flutters. US ordered. encouraged to get NOB labs 12/06/23 -?-?-?-?-?-?-?-?-?-?-?-?- 23w 5d 129 lb (+13 lb 10 oz) 116/69 Trace -?-?-?-?-?-?-?-?-?-?-?-?- Negative 140 -?-?-?-?-?-?-?-?-?-?-?-?- Sm- no vb lof go od fm no reuglar ctx, nob labs drawn today 01/07/24 -?-?-?-?-?-?-?-?-?-?-?-?- 28w 2d 138 lb 4 oz (+22 lb 14 oz) 125/83 Negative -?-?-?-?-?-?-?-?-?-?-?-?- Negative 137 28 -?-?-?-?-?-?-?-?-?-?-?-?- LC-no vb/ctx/lof . good fm. labs drawn in office. LC-no vb/ctx/lof. good fm. l abs drawn in office.declines flu vaccine, considering tdap. 01/18/24 -?-?-?-?-?-?-?-?-?-?-?-?- 29w 6d 139 lb (+23 lb 10 oz) 125/69 Negative -?-?-?-?-?-?-?-?-?-?-?-?- Negative 145 30 -?-?-?-?-?-?-?-?-?-?-?-?- SM- no vb crampi ng lof good fm 02/01/24 -?-?-?-?-?-?-?-?-?-?-?-?- 31w 6d 142 lb (+26 lb 10 oz) 126/77 Negative -?-?-?-?-?-?-?-?-?-?-?-?- Negative 140 32 -?-?-?-?-?-?-?-?-?-?-?-?- KW- no vb/lof/ct x. good fm. no concerns today 02/17/24 -?-?-?-?-?--?-?-?-?-?-?-?- 34w 1d 148 lb 8 oz (+33 lb 2 oz) 118/72 Negative -?-?-?-?-?-?-?-?-?-?-?-?- Negative 147 34 -?-?-?-?-?-?-?-?-?-?-?-?- JV- no lof, vagi nal bleeding, or cramping. She has noticed more heart fluttering. increase fluids and wearing compression stockings may help. She denies chest pain. declines flu and tdap. 02/29/24 -?-?-?-?-?-?-?-?-?-?-?-?- 35w 6d 151 lb (+35 lb 10 oz) 123/75 Negative -?-?-?-?-?-?-?-?-?-?-?-?- Negative 122 36.5 Cephalic -?-?-?-?-?-?-?-?-?-?-?-?- JV- no lof, vagi nal bleeding, or dec fm. lots of movement today! bedside scan confirms vtx presentation. 03/09/24 -?-?-?-?-?-?-?-?-?-?-?-?- 37w 1d 154 lb 4 oz (+38 lb 14 oz) 120/75 Trace -?-?-?-?-?-?-?-?-?-?-?-?- 1000 g/dL 120 37 Cephalic 1 -?-?-?-?-?-?-?-?-?-?-?-?- SM- no vb lof go od fm no reugalr ctx no uti symptoms gbs collected 03/16/24 -?-?-?-?-?-?-?-?-?-?-?-?- 38w 1d 154 lb (+38 lb 10 oz) 121/73 1+ -?-?-?-?-?-?-?-?-?-?-?-?- 1000 g/dL 130 38 Cephalic -?-?-?-?-?-?-?-?-?-?-?-?- KW- no vb/lof/ct x. good fm. declines vaginal exam today. 03/24/24 -?-?-?-?-?-?-?-?-?-?-?-?- 39w 2d 150 lb 8 oz (+35 lb 2 oz) 119/79 Negative -?-?-?-?-?-?-?-?-?-?-?-?- Negative 115 39 -?-?-?-?-?-?-?-?-?-?-?-?- SM- audible vari able heard at ediside, nst done and variable coming off an accel- to l and d for extended monitoring and bpp 03/28/24 -?-?-?-?-?-?-?-?-?-?-?-?- 39w 6d 155 lb 4 oz (+39 lb 14 oz) 138/89 Negative -?-?-?-?-?-?-?-?-?-?-?-?- 500 g/dL 135 40 Cephalic 3 -?-?-?-?-?-?-?-?-?-?-?-?- 70 -2 KW- no vb/ lof/ctx. good fm. would like IOL next week if no active labor over the weekend. 03/31/24 -?-?-?-?-?-?-?-?-?-?-?-?- 40w 2d 150 lb 4 oz (+34 lb 14 oz) 144/80 1+ -?-?-?-?-?-?-?-?-?-?-?-?- 250 g/dL 150 39 Cephalic 4 -?-?-?-?-?-?-?-?-?-?-?-?- 80 -2 KW- no vb/ lof/ctx. good fm. to WP for IOL NST FHR Rate Baby A Baseline: 115 Variability:: Moderate Accelerations:: 15 x 15 Decelerations:: None NST Reactive:: Yes FHR Category:: Category I Uterine Activity:: irregular ROS Constitutional Constitutional: Denies change in weight, fatigue, fever(s), headache(s), poor appetite or weakness Eyes Eyes: Denies blurry vision, change in vision, floaters, seeing flashes or spots in vision ENT HEENT: Denies dizziness, headache(s), loss taste/smell or sore throat Cardiovascular Cardiovascular: Denies chest pain, dizziness, dyspnea, irregular heart rhythm, lightheadedness, palpitations or rapid heart rate Respiratory/Chest Respiratory/Chest: Denies change in mental status, chest tightness, cough, dyspnea or breast pain Gastrointestinal Gastrointestinal: Denies anorexia, chewing difficulty, constipation, diarrhea or weight changes Genitourinary Genitourinary: Denies difficulty urinating, dysuria, flank pain, genital pain, urinary frequency or urinary urgency Musculoskeletal Musculoskeletal: Denies back pain, difficulty walking, extremity pain, joint pain, muscle cramps or muscle weakness Integumentary Integumentary: Denies lesions or unusual bruising Neurologic Neurologic: Denies abnormal movements, abnormal speech, dizziness, numbness, seizure-like activity, syncope or weakness Psychiatric Psychiatric: Denies behavioral changes, change in appetite, confusion, depression, homicidal ideation, suicidal ideation or suicidal thoughts Endocrine Endocrinology: Denies excessive sweating, polydipsia or polyuria Hematologic/Lymphatic Hematologic/Lymphatic: Denies anemia Allergic/Immunologic Allergic/Immunologic: Denies itchy eyes, lip swelling, throat swelling, tongue swelling or wheezing Vital Signs Vital Signs Vital Signs: 03/31/24 09:51 03/31/24 09:51 03/31/24 10:34 Pulse Rate 94 Blood Pressure 134/84 H 122/76 H BP Systolic 134 122 BP Diastolic 84 76 Pulse Ox 03/31/24 10:34 03/31/24 11:33 03/31/24 11:33 Pulse Rate 83 67 Blood Pressure BP Systolic BP Diastolic Pulse Ox 99 03/31/24 11:38 03/31/24 11:38 03/31/24 11:39 Pulse Rate 81 94 Blood Pressure BP Systolic BP Diastolic Pulse Ox 99 03/31/24 11:39 03/31/24 11:41 03/31/24 11:41 Pulse Rate 73 Blood Pressure 155/85 H BP Systolic 155 BP Diastolic 85 Pulse Ox 88 03/31/24 11:43 03/31/24 11:43 03/31/24 11:45 Pulse Rate 88 Blood Pressure 153/87 H BP Systolic 153 BP Diastolic 87 Pulse Ox 100 03/31/24 11:45 03/31/24 11:48 03/31/24 11:48 Pulse Rate 80 74 Blood Pressure BP Systolic BP Diastolic Pulse Ox 99 03/31/24 11:51 03/31/24 11:51 03/31/24 11:54 Pulse Rate 78 93 Blood Pressure 136/83 H BP Systolic 136 BP Diastolic 83 Pulse Ox 03/31/24 11:54 03/31/24 11:57 03/31/24 11:57 Pulse Rate 75 Blood Pressure 117/69 BP Systolic 117 BP Diastolic 69 Pulse Ox 99 03/31/24 11:59 03/31/24 11:59 03/31/24 12:00 Pulse Rate 85 Blood Pressure 113/67 BP Systolic 113 BP Diastolic 67 Pulse Ox 98 03/31/24 12:00 03/31/24 12:04 03/31/24 12:04 Pulse Rate 82 77 Blood Pressure BP Systolic BP Diastolic Pulse Ox 99 03/31/24 12:06 03/31/24 12:06 03/31/24 12:09 Pulse Rate 77 91 Blood Pressure 114/63 BP Systolic 114 BP Diastolic 63 Pulse Ox 03/31/24 12:09 03/31/24 12:10 03/31/24 12:10 Pulse Rate 91 Blood Pressure 118/74 BP Systolic 118 BP Diastolic 74 Pulse Ox 100 03/31/24 12:14 03/31/24 12:14 03/31/24 12:17 Pulse Rate 89 Blood Pressure 126/68 H BP Systolic 126 BP Diastolic 68 Pulse Ox 99 03/31/24 12:17 03/31/24 12:20 03/31/24 12:20 Pulse Rate 73 75 Blood Pressure 114/56 L BP Systolic 114 BP Diastolic 56 Pulse Ox 03/31/24 12:23 03/31/24 12:23 03/31/24 12:26 Pulse Rate 86 Blood Pressure 113/57 L BP Systolic 113 BP Diastolic 57 Pulse Ox 99 03/31/24 12:26 Pulse Rate 71 Blood Pressure BP Systolic BP Diastolic Pulse Ox Weight Weight: 150 lb 6 oz Body Mass Index (BMI) 25.8 Physical Exam Const alert, oriented x3 and no apparent distress General Appearance: cooperative Orientation / Consciousness: awake HEENT normocephalic Neck full ROM Lymph Lymphatic: no lymphadenopathy noted Chest inspection of chest normal Resp normal respiratory effort and normal air movement Effort and Inspection: able to speak in complete sentences and symmetric chest movement GI soft to palpation and non-tender Inspection: gravid Palpation: soft; Negative for tender external exam normal Back/Spine normal to inspection Extremity normal to inspection and full ROM Skin no rashes or lesions noted Psych mental status grossly normal Appearance: grossly normal Speech: normal speech Labs Labs Labs: Blood Type O POSITIVE Antibody Screen NEGATIVE Hct 36.3 % (37-47) L Hgb 11.9 g/dL (12.0-15.0) L Obstetrics Ultrasound Syphilis Total Ab Non-reactive Rubella IgG Antibody Reactive (Nonreactive) Hep Bs Antigen Non-Reactive (Nonreactive) Hepatitis C Antibody Non-Reactive (Nonreactive) Chlamydia DNA (JIAN) Negative (Negative) N.gonorrhoeae DNA (JIAN) Negative (Negative) HIV 1&2 Antibody Non-Reactive (Nonreactive) Glucose 1 Hr 50 gm 119 mg/dL (70-140) Rhogam given: No Assessment & Plan (1) Encounter for induction of labor: COMMENT: pitocin/AROM PLAN: Patient presents IOL, plan management for with pitocin/AROM. Pain management: plans epidural. GBS negative. Management of any complications: see problem list I have reviewed the [facility] and made any clinically relevant updates. Dr Harris aware of admission, plan and assessment. Agrees with above (2) Variable heart rate decelerations, antepartum: (3) : QUALIFIERS: Weeks of gestation: 40 weeks Qualified Code(s): Z3A.40 - 40 weeks gestation of COMMENT: Neg GBS. genetic, carrier, and NTD screening declined, normal anatomy (4) Supervision of normal : COMMENT: PRR, BEATA PC Nithin Dan Lydia, Logan Hever Charges/Coding Multi Select Codes Urinary/Genital Urinary/Genital CPT Codes: No Charge
--- NOTE | 2024-03-31 13:09 | PCM.PN.BLA ---
Progress Note comfortable with epidural current tracing: FHT: 110 Moderate variability reactive no decelerations category II tracing [place]: irregular Contractions Membranes:AROM clear and internal monitor placed. FHT dropped to 60-70 for 3-4 minutes after and JONEL called. SVE:/1 reviewed tracing abnormalities since last note: phone collaboration with Dr Harris at this time for prolonged decel and FHT tracing, stayed in OR for 15-20 minutes and FHT returned to baseline with moderate variablity and accels. Plan to return to room for labor. A/P: Continue with position changes Titrate pitocin per protocol Epidural per anesthesia GBS neg Anticipate Dr Harris aware of above assessment and agrees with plan of care Assessment & Plan Assessment/Plan (1) Encounter for induction of labor: (2) Variable heart rate decelerations, antepartum: (3) : QUALIFIERS: Weeks of gestation: 40 weeks Qualified Code(s): Z3A.40 - 40 weeks gestation of (4) Supervision of normal : Multi Select Codes Urinary/Genital Urinary/Genital CPT Codes: No Charge
--- NOTE | 2024-03-31 13:37 | CASEMGMT ---
Labor and Delivery Transfusion Aide Date: 03/31/24 Time:1230 JONEL called, this nephrology social worker reported to bedside and introduced self to father of baby/ spouse to patient, Hever. Sw explained sw role and provided support to FOB while MOB remained in operating room. FOB was receptive to support offered and appeared to remain calm and collected. FOB ultimately called to operating room where he was able to be with MOB/ patient. No additional needs or concerns. Dian Chacon, FAST FOOD SUPERVISOR, DICTAPHONE OPERATOR
[2024-03-31] MEDS: Oxytocin 15 Units/NS 250ml 15 UNITS/250 ML IV.SOLN 334 UNITS IV (15:26)
--- NOTE | 2024-03-31 15:37 | EX.PCM.OBVAG ---
Assessment & Plan (1) Vaginal delivery: COMMENT: KW 40 Boy IOL Geoff Maternal Data Information BEATA Calculator Estimated Delivery Date Method Current WG Current Estimate 03/29/24 Ultrasound #1 40w 2d Other Estimates 04/25/24 LMP (Certain) 36w 3d Final BEATA: 03/29/24 Final BEATA Source: US >20 weeks Gestational age: 40.2 Vaginal Delivery Maternal Presentation Maternal Presentation: Medically Indicated Induction Maternal Presentation: Presented to unit for induction of labor for elevated BP in office. Type of Induction: Pitocin Medical Reason for Induction: Maternal Medical Condition: list: Vaginal Delivery Information Procedure Performed: Spontaneous Vaginal Delivery Surgeon/Practitioner: Radha Medina Date of Procedure: 03/31/24 Pre-Procedure Diagnosis: see problem list Post-Procedure Diagnosis: same Type of anesthesia: Epidural Estimated Blood Loss: 300 Time of Delivery: 15:19 Findings Description of procedure: Progressed well to 10cm dilated and made steady progress with effective maternal pushing. Delivered the head in OP presentation. The head was delivered atraumatically and a loose nuchal cord x2 was identified and unable to be reduced over the head due to infant position. Infant delivered through. The anterior and posterior shoulders delivered without complication followed by the rest of the and the was placed on the maternal abdomen. Delayed cord clamping was employed for approximately 3 minutes. Cord was clamped and cut and gentle traction was applied to the cord and the placenta delivered spontaneously. Immediately following, it was noted to be intact with a 3 vessel cord. Uterine bleeding stable but increased at times, Methergine given. The perineum and vagina were inspected and noted to have no laceration . EBL was 300cc. Patient and infant tolerated delivery well. Apgars 8/9. Dr Harris notified of vaginal delivery and orders reviewed. Physician agrees with current plan of care. Presentation: Vertex Amniotic Membrane Rupture Type: Artificial Amniotic Fluid Description: Clear Placental Delivery Description: Spontaneous Placenta Disposition: [facility] Specimen collected: No Cord Vessel Description: 3 Vessels Cord Entanglement: Around neck x 2, tight Cord Gases: ABG and VBG A Gender: Male (1 minute): 8 (5 minute): 9 Delayed Cord Clamping: Yes Filter Worker games dealer: No Post Vaginal Deli Medications given after delivery: IV Pitocin, IM Pitocin and IM Methergin Episiotomy Description: None Laceration: None Complication Complications: No Multi Select Codes Urinary/Genital Urinary/Genital CPT Codes: 68524 Vaginal Delivery [facility]
[2024-03-31] MEDS: Oxytocin 10 UNITS/ML Vial IM (15:42)
--- NOTE | 2024-03-31 15:42 | DCINST_ITS ---
Discharge Instructions Diet Discharge Diet: No restrictions DC O2, CPAP, BIPAP needs Home O2 Discharge instructions: No Dressing / Incision Discharge Activity: Return to Normal Activity May resume sexual activity in: 6-8 weeks Dressing / Incision Call your doctor if you observe: Fever of 101 or Higher, Coldness, Increased Pain, Numbness or Tingling, Change in Color, Inability to urinate, Inability to have a bowel movement, Using more than 1 pad per hour, Shortness of breath, Dizziness, Fainting spells, Swelling in the ankles, Chest pain, Increased p alpitations (irregular heartbeat), Calf discomfort and Uncontrolled pain Follow Up Care Please Follow Up With: Radha Medina CNM When: Please call the office to schedule your follow up appointment in 6 weeks. If you had high blood pressure please call to schedule an appointment in 2 weeks. Test Results: Test results from this visit will be discussed in further detail at your follow- up appointment, if applicable. Discharge Plan Admission Admit Date/Time: 03/31/24 09:29 Attending Provider: Radha Medina Primary Care Provider: Ramirez Saunders Discharge Orders/Prescriptions Prescriptions: No Action PNV cmb#[id number]-ferrous fumarate-FA [ Multivitamins] 28 mg iron- 800 mcg tablet 1 tab PO DAILY Referrals / Follow Up: Ramirez Saunders MD [Primary Care Provider] -
[2024-03-31] MEDS: fentaNYL-bupivacaine (epidural) 100 ML BAG EPIDURAL (15:43)
[2024-03-31] MEDS: Methylergonovine 0.2 MG/ML Ampul IM (15:43)
[2024-03-31] MEDS: Oxytocin 15 Units/NS 250ml 15 UNITS/250 ML IV.SOLN 83 UNITS IV (16:05)
[2024-04-01 00:41] VITALS: BP 112/76; PULSE 73; RESP 14; TEMP 36.8; O2SAT 99
[2024-04-01 03:28] VITALS: BP 131/75; PULSE 71; O2SAT 96
[2024-04-01 03:30] VITALS: BP 124/80; PULSE 60
[2024-04-01 03:33] VITALS: BP 124/80; PULSE 62; RESP 14; TEMP 36.7; O2SAT 98
[2024-04-01 08:52] VITALS: BP 119/77; PULSE 72; PULSE 74; RESP 16; TEMP 36.9; O2SAT 98
--- NOTE | 2024-04-01 09:55 | PN.OBGYN_ITS ---
Subjective Subjective Patient doing well without complaints. Tolerating PO. Ambulating and voiding without difficulty. Feeding well. Denies chest pain, shortness of breath, calf pain/swelling, fevers, chills, lightheadedness. Objective Data Objective Data Vital Signs: Vital Signs Temp Pulse Resp BP Pulse Ox O2 Del Method 98.5 F 74 16 119/77 98 Room Air 04/01/24 08:52 04/01/24 08:52 04/01/24 08:52 04/01/24 08:52 04/01/24 08:52 04/01/24 08:52 Oxygen Delivery Method Room Air Weight: 150 lb 6 oz Body Mass Index (BMI) 25.8 Intake & Output: Intake and Output for Last 24 Hours 03/30/24 03/31/24 04/01/24 23:59 23:59 23:59 Intake Total 745.21 / 745.21 Output Total 950 / 950 Balance -204.79 / -204.79 Lab / Micro Data Attestation: I reviewed the patient's lab results. 03/31/24 10:10 Labs: Laboratory Results - last 24 hr 03/31/24 10:10: WBC 8.5, RBC 4.21, Hgb 11.9 L, Hct 36.3 L, MCV 86.2, MCH 28.3, MCHC 32.8, RDW Std Deviation 43.2, RDW Coeff of Dung 13.9, Plt Count 234, MPV 11.1, Immature Gran % (Auto) 0.700, Neut % (Auto) 78.8 H, Lymph % (Auto) 12.9 L, [place] % (Auto) 7.0, Eos % (Auto) 0.1, Baso % (Auto) 0.5, Absolute Neuts (auto) 6.7, Absolute Lymphs (auto) 1.09, Nucleated RBC % 0, Syphilis Total Ab Non- reactive, Blood Type O POSITIVE, Antibody Screen NEGATIVE 03/31/24 11:20: U Random Total Protein 46.9 H, Urine Creatinine 191.00, P rotein/Creatinin Ratio 246 H ROS Constitutional Constitutional: Reports systems reviewed and no addt'l complaints, except as documented; Denies anorexia or headache(s) Cardiovascular Cardiovascular: Reports systems reviewed and no addt'l complaints, except as documented; Denies dizziness, dyspnea, nausea or tachypnea Respiratory/Chest Respiratory/Chest: Reports systems reviewed and no addt'l complaints, except as documented; Denies cough, dyspnea, shortness of breath at rest or tachypnea Gastrointestinal Gastrointestinal: Reports systems reviewed and no addt'l complaints, except as documented; Denies abdominal pain, constipation or nausea Genitourinary Genitourinary: Reports systems reviewed and no addt'l complaints, except as documented; Denies burning urination, difficulty urinating, dysuria, urinary frequency or urinary incontinence Musculoskeletal Musculoskeletal: Reports systems reviewed and no addt'l complaints, except as documented Integumentary Integumentary: Reports systems reviewed and no addt'l complaints, except as documented Neurologic Neurologic: Reports systems reviewed and no addt'l complaints, except as documented; Denies abnormal speech, dizziness or headache(s) Psychiatric Psychiatric: Reports systems reviewed and no addt'l complaints, except as documented Endocrine Endocrinology: Reports systems reviewed and no addt'l complaints, except as documented Hematologic/Lymphatic Hematologic/Lymphatic: Reports systems reviewed and no addt'l complaints, except as documented Physical Exam Const alert, oriented x3 and no apparent distress Neck full ROM Resp normal respiratory effort, normal air movement and no retractions Effort and Inspection: able to speak in complete sentences and symmetric chest movement GI soft to palpation Bladder / Kidney Exam: bladder normal to palpation Uterus Palpation: uterus fundus firm Extremity normal to inspection and full ROM Psych mental status grossly normal, thought process normal and cooperative Assessment & Plan (1) Vaginal delivery: COMMENT: KW 40 Boy IOL Geoff PLAN: s/p PPD # 1 1. routine post delivery care 2. breast feeding- support given 3. rh positive 4. rubella immune 5. Discharge home (2) Encounter for induction of labor: COMMENT: pitocin/AROM (3) Variable heart rate decelerations, antepartum: (4) : QUALIFIERS: Weeks of gestation: 40 weeks Qualified Code(s): Z 3A.40 - 40 weeks gestation of COMMENT: Neg GBS. genetic, carrier, and NTD screening declined, normal anatomy (5) Supervision of normal : COMMENT: PRR, BEATA PC Nithin Dan Lydia, Armando Hever Charges/Coding Multi Select Codes Urinary/Genital Urinary/Genital CPT Codes: No Charge
[2024-04-01 13:04] VITALS: BP 124/79; PULSE 86; RESP 16
== END 2024-04-01 15:55 | disposition home or self-care (01) | DRG 807 ==
PROVIDERS: Admitting Provider Advanced Practice Midwife; PCP Family Medicine; Referring Provider Advanced Practice Midwife; Visit Provider Advanced Practice Midwife
DX: O76 Abnormality in fetal heart rate and rhythm complicating labor and delivery (principal); Z37.0 Single live birth; R03.0 Elevated blood-pressure reading, without diagnosis of hypertension; O26.893 Other specified pregnancy related conditions, third trimester; Z3A.40 40 weeks gestation of pregnancy; Z87.59 Personal history of other complications of pregnancy, childbirth and the puerperium
CPT/HCPCS: 59025; 59050; 82570; 84156; 85025; 86780; 86850; 86900; 86901; 99221; G0378

== ENCOUNTER → 2024-03-31 | Outpatient (CLI) | payer OTHER, SELFPAY ==
[2024-03-31 09:45] LABS: Protein, Urine (Random) 54.5 mg/dL (<11.9); Protein:Creat Ratio 301 mg/g CRE (0-200)
== END | disposition home or self-care (01) ==
LOC: LABSPEC 09:30
PROVIDERS: PCP Family Medicine; Referring Provider Advanced Practice Midwife; Visit Provider Advanced Practice Midwife
DX: O16.3 Unspecified maternal hypertension, third trimester (principal); Z3A.00 Weeks of gestation of pregnancy not specified
CPT/HCPCS: 82570; 84156